=== PATIENT | male | born 1965 ===

== ENCOUNTER 2017-01-03 12:01 | Inpatient (IN) | payer OTHER ==
[2017-01-03] MEDS: Albuterol-Ipratrop 3 mg / 0.5 (3 ml) UD IH SCH ×2 (12:15→12:30)
[2017-01-03] MEDS ORDERED: Albuterol-Ipratrop 3 mg / 0.5 (3 ml) UD ONE (12:27)
--- NOTE | 2017-01-03 12:31 | RAD ---
HISTORY: SOB COMPARISON: Comparison is made to the previous study dated 12/21/2015 TECHNIQUE: Chest PA and lateral FINDINGS: LUNGS: Mild pulmonary vascular congestion P PLEURA: No significant pleural effusion identified. No pneumothorax apparent. CARDIOVASCULAR: Cardiomegaly is again noted OSSEOUS STRUCTURES: No significant abnormalities. VISUALIZED UPPER ABDOMEN: Normal. OTHER FINDINGS: None. IMPRESSION: Cardiomegaly and mild pulmonary vascular congestion. No evidence of significant pleural effusion.
[2017-01-03 12:47] LABS: URINE BILIRUBIN NEGATIVE (NEGATIVE); URINE BLOOD NEGATIVE (NEGATIVE); URINE COLOR Colorless (YELLOW); URINE GLUCOSE (UA) NORMAL (Normal); URINE KETONE NEGATIVE (NEGATIVE); URINE LEUKOCYTE ESTERASE NEG Leu/uL (Negative); URINE PROTEIN NEGATIVE (NEGATIVE); URINE UROBILINOGEN NORMAL mg/dL (0.2-1.0)
[2017-01-03 12:48] LABS: BASO % 0.4 % (0.0-2.0); EOS # 0.1 K/uL (0.0-0.7); EOS % 1.4 % (0.0-4.0); HEMATOCRIT 48.1 % (35.0-51.0); LYMPH # 1.2 K/uL (1.0-4.3); LYMPH % 25.5 % (20.0-40.0); MEAN CELL VOLUME 89.4 fL (80.0-94.0); MEAN CORPUSCULAR HEMOGLOBIN 28.9 pg (27.0-31.0); MEAN CORPUSCULAR HGB CONC 32.3 g/dL (33.0-37.0); MEAN PLATELET VOLUME 8.9 fL (7.2-11.7); MONO # 0.4 K/uL (0.0-0.8); MONO % 8.2 % (0.0-10.0); NRBC % 0.1 % (0.0-2.0); RED CELL DISTRIBUTION WIDTH 13.8 % (11.5-14.5); WHITE BLOOD COUNT 4.5 K/uL (4.8-10.8)
[2017-01-03 12:52] LABS: CHLORIDE 102 mmol/L (98-107); SODIUM 141 mmol/L (132-148)
[2017-01-03 12:53] LABS: POTASSIUM 4.1 mmol/L (3.6-5.2)
[2017-01-03 12:55] LABS: ALB/GLOB RATIO 1.3 (1.0-2.1); ALKALINE PHOSPHATASE 55 U/L (38-126); ALT/SGPT 34 U/L (21-72); AST/SGOT 41 U/L (17-59); BILIRUBIN,TOTAL 1.2 mg/dL (0.2-1.3); BLOOD UREA NITROGEN 10 mg/dL (9-20); CARBON DIOXIDE 20 mmol/L (22-30); GFR AFRICAN-AMERICAN > 60; GLUCOSE,RANDOM 84 mg/dL (75-110); TOTAL PROTEIN 7.9 g/dL (6.3-8.3)
--- NOTE | 2017-01-03 13:05 | C.PDOC ---
History Of Present Illness The patient, a 51 y/o male whose PMHx includes cardiac-related issues and HTN, presents to the ED for evaluation of shortness of breath which began a couple days ago. Patient denies fever, chills, cough, and chest pain. PMD: Dr. Ferro Time Seen by Provider: 01/03/17 12:04 Chief Complaint (Nursing): Shortness Of Breath History Per: Patient History/Exam Limitations: no limitations Onset/Duration Of Symptoms: Days Current Symptoms Are (Timing): Still Present Quality: denies: "Pain" Current Respiratory Medications: See Home Med List Associated Symptoms: denies: Fever, Chills, Chest Pain, Bloody Cough, Productive Cough Additional History Per: Patient Past Medical History Reviewed: Historical Data, Nursing Documentation, Vital Signs Vital Signs: Last Vital Signs Temp 97.9 F 01/03/17 12:03 Pulse 107 H 01/03/17 14:10 Resp 22 01/03/17 14:10 BP 146/104 H 01/03/17 14:10 Pulse Ox 93 L 01/03/17 15:09 - Medical History PMH: CHF, HTN, Hypercholesterolemia, Hyperthyroidism, Pneumonia Denies: Chronic Kidney Disease Surgical History: No Surg Hx Family History: States: Unknown Family Hx - Social History Hx Alcohol Use: No Hx Substance Use: No - Immunization History Hx Tetanus Toxoid Vaccination: No Hx Influenza Vaccination: No Hx Pneumococcal Vaccination: No Review Of Systems Except As Marked, All Systems Reviewed And Found Negative. Constitutional: Negative for: Fever, Chills Cardiovascular: Negative for: Chest Pain Respiratory: Positive for: Shortness of Breath. Negative for: Cough Physical Exam - Physical Exam Appears: Non-toxic, No Acute Distress Skin: Normal Color, Warm, Dry Head: Atraumatic, Normacephalic Eye(s): bilateral: Normal Inspection, EOMI Oral Mucosa: Moist Neck: Supple Chest: Symmetrical, No Deformity, No Tenderness Cardiovascular: Rhythm Regular, No Murmur Respiratory: Rales (crackes at bilateral bases ), No Rhonchi, No Wheezing Gastrointestinal/Abdominal: Soft, No Tenderness, No Guarding, No Rebound Back: Normal Inspection, No Vertebral Tenderness, No Paraspinal Tenderness Extremity: Normal ROM, Capillary Refill (less than 2 seconds), No Swelling Pulses: Left Dorsalis Pedis: Normal, Right Dorsalis Pedis: Normal Neurological/Psych: Oriented x3, Normal Speech, Normal Cognition Gait: Steady ED Course And Treatment - Laboratory Results Result Diagrams: 01/03/17 12:38 01/03/17 12:38 Lab Interpretation: Normal ECG: Interpreted By Me ECG Rhythm: Sinus Tachycardia ECG Interpretation: No Acute Changes Rate From EC O2 Sat by Pulse Oximetry: 93 Pulse Ox Interpretation: Abnormal - Radiology CXR: Interpreted by Me CXR Interpretation: Yes: Cardiomegaly - Other Rad CXR X-Ray: Read By Radiologist Interpretation: Accession No. : [id number]. Patient Name / ID : HUYEN GREEN / [id number]. Exam Date : 01/03/2017 12:15:38 ( Approved ). Study Comment : Sex / Age : M / 51Y. Creator : Carlos Thacker. Dictator : Carlos Thacker. Magistrate Assistant : Rabbit Breeder : Carlos Thacker. Approver2 : Report Date : 01/03/2017 12:29:41. My Comment : . HISTORY: SOB. COMPARISON: Comparison is made to the previous study dated 12/21/2015. TECHNIQUE: Chest PA and lateral. FINDINGS: LUNGS: Mild pulmonary vascular congestion P. PLEURA: No significant pleural effusion identified. No pneumothorax apparent. CARDIOVASCULAR: Cardiomegaly is again noted. OSSEOUS STRUCTURES: No significant abnormalities. VISUALIZED UPPER ABDOMEN: Normal. OTHER FINDINGS: None. IMPRESSION: Cardiomegaly and mild pulmonary vascular congestion. No evidence of significant pleural effusion. Progress Note: labs, EKG, CXR ordered and reviewed. Patient received Albuterol INH. Treated with lasix 40 mg IV. On re-evaluation lungs clear Reassessment Condition: Improved - Physician Consult Information Physician Contacted: Cj Ferro Outcome Of Conversation: Admit to hospitalist service Disposition Discussed With Dr.: Aparna Buckley Doctor Will See Patient In The: Hospital Counseled Patient/Family Regarding: Studies Performed, Diagnosis - Disposition Disposition: HOSPITALIZED Disposition Time: 14:40 Condition: STABLE - POA Present On Arrival: None - Clinical Impression Clinical Impression: Chronic congestive heart failure, Dyspnea, HTN (hypertension) - PA / VEHICLE SALES PROFESSIONAL / Resident Statement MD/DO has reviewed & agrees with the documentation as recorded. - Scribe Statement The provider has reviewed the documentation as recorded by the Scribe (Sandra Dubois) All medical record entries made by the Scribe were at my direction and personally dictated by me. I have reviewed the chart and agree that the record accurately reflects my personal performance of the history, physical exam, medical decision making, and the department course for this patient. I have also personally directed, reviewed, and agree with the discharge instructions and disposition. Decision To Admit - Pt Status Changed To: Hospital Disposition Of: Observation - . Bed Request Type: Telemetry Admitting Physician: Aparna Buckley Patient Diagnosis: Chronic congestive heart failure, Dyspnea, HTN (hypertension)
--- NOTE | 2017-01-03 14:45 | CP.PCM.HP ---
<Cynthia Acevedo - Last Filed: 01/03/17 16:23> History of Present Illness - History of Present Illness History of Present Illness: CC: shortness of breath for 3 days HPI: Patient is a 51year old male PMHx of CHF, HTN, asthma presenting with SOB for 3 days. Patient reported he did not come in earlier as he believed it was improving but it worsened greatly this morning as he was becoming short of breath upon working 10feet to the shower. Patient reported he saw his PMD Dr. Ferro 2 months ago and had not taken his medications for over a week as he didn 't feel like doing so and reported they were making him congested. Patient also states that he had been advised regarding AICD placement for over a year but is still thinking about it. Patient reports this morning he started feeling faint as well as short of breath when walking but denied any acute chest pain. Patient was last seen in in 2016 and was in the ICU for 24hours due to " fluid in lungs." Patient reports having to use 3 pillows to sleep otherwise he feels short of breath. Patient denied chest pain, palpitations, abdominal pain, nausea, vomiting, diarrhea, constipation, urinary complaints, pain in his legs. Patient denied any recent travel and denied any sick contacts. Patient admits to nonproductive cough, unintentional weight gain of 5 pounds in 2 months, and orthopnea. As per medical records, patient had a stress test 1 year ago with an EF of 20%. PMD: Dr. Ferro PMHx: CHF, HTN, asthma Meds: please see list ALL: enalapril, levofloxacin PSurg: denies PHospitalization: 2016 for CHF exacerbation- was in ICU for 1 day Family Hx: denies history of CA, CVA, cancer Social Hx: quit tobacco abuse 2011 used to smoke 1ppd for 15 years. Drinks EtOH socially. Denies drug abuse. Lives with ex 's mom. Works as customer service. ROS: + shortness of breath, + cough, + unintentional weight gain of 5 pounds in 2 months, + orthopnea ED Course: CXR showed cardiomegaly and mild pulmonary vascular congestion. No evidence of significant pleural effusion. EKG showed sinus tach, possible L atrial enlargement, L axis deviation, LVH. Patient had 1 dose of lasix 40mg IVP. Present on Admission - Present on Admission Any Indicators Present on Admission: No Review of Systems - Constitutional Constitutional: As Per HPI, Weight Gain. absent: Chills, Fever - EENT Eyes: As Per HPI. absent: Blurred Vision Ears: As Per HPI. absent: Dizziness Nose/Mouth/Throat: As Per HPI. absent: Nasal Congestion, Sore Throat - Cardiovascular Cardiovascular: As Per HPI, Dyspnea, Dyspnea on Exertion, Orthopnea. absent: Chest Pain, Chest Pain at Rest, Edema, Palpitations, Pedal Edema, Syncope - Respiratory Respiratory: As Per HPI, Dyspnea, Dyspnea on Exertion. absent: Cough, Hemoptysis, Wheezing, Chest Congestion - Gastrointestinal Gastrointestinal: As Per HPI. absent: Abdominal Pain, Constipation, Diarrhea, Nausea, Vomiting - Genitourinary Genitourinary: As Per HPI, Urinary Frequency (increased urinary frequency which patient associates with lasix). absent: Dysuria, Nocturia - Musculoskeletal Musculoskeletal: As Per HPI. absent: Numbness, Tingling - Integumentary Integumentary: As Per HPI. absent: Dry Skin, Rash - Neurological Neurological: As Per HPI. absent: Dizziness, Numbness, Focal Weakness, Syncope - Psychiatric Psychiatric: As Per HPI. absent: Anxiety, Depression - Endocrine Endocrine: As Per HPI, Polyuria. absent: Palpitations, Polydipsia, Polyphagia - Hematologic/Lymphatic Hematologic: As Per HPI. absent: Easy Bleeding, Easy Bruising Past Patient History - Infectious Disease Hx of Infectious Diseases: None - Past Medical History & Family History Past Medical History?: Yes - Past Social History Smoking Status: Former Smoker - CARDIAC Hx Congestive Heart Failure: Yes Hx Hypercholesterolemia: Yes Hx Hypertension: Yes - PULMONARY Hx Pneumonia: Yes - HEENT Other/Comment: wears reading glasses - RENAL Hx Chronic Kidney Disease: No - ENDOCRINE/METABOLIC Hx Hyperthyroidism: Yes - MUSCULOSKELETAL/RHEUMATOLOGICAL Hx Falls: No - PSYCHIATRIC Hx Substance Use: No - SURGICAL HISTORY Hx Surgeries: No - ANESTHESIA Hx Anesthesia: No Hx Anesthesia Reactions: No Meds Allergies/Adverse Reactions: Allergies Allergy/AdvReac Type Severity Reaction Status Date / Time enalapril maleate Allergy Intermediate SHORTNESS Verified 12/20/15 23:43 [From Vasotec] OF BREATH enalaprilat dihydrate Allergy Intermediate SWELLING Verified 12/20/15 23:43 [From Vasotec] levofloxacin Allergy Unknown SHORTNESS Verified 12/20/15 23:43 OF BREATH Physical Exam - Constitutional Appears: Well, Non-toxic, No Acute Distress - Head Exam Head Exam: ATRAUMATIC, NORMAL INSPECTION - Eye Exam Eye Exam: Normal appearance. absent: Conjunctival injection, Scleral icterus - ENT Exam ENT Exam: Mucous Membranes Moist - Neck Exam Neck exam: Positive for: Normal Inspection. Negative for: Tenderness - Respiratory Exam Respiratory Exam: Clear to Auscultation Bilateral, NORMAL BREATHING PATTERN. absent: Rales, Rhonchi, Wheezes - Cardiovascular Exam Cardiovascular Exam: Tachycardia, REGULAR RHYTHM, +S4. absent: Systolic Murmur - GI/Abdominal Exam GI & Abdominal Exam: Normal Bowel Sounds, Soft. absent: Firm, Guarding, Rigid, Tenderness - Extremities Exam Extremities exam: Positive for: normal capillary refill, normal inspection, pedal pulses present. Negative for: pedal edema - Back Exam Back exam: NORMAL INSPECTION. absent: rash noted - Neurological Exam Neurological exam: Alert, Oriented x3 - Psychiatric Exam Psychiatric exam: Normal Affect, Normal Mood - Skin Skin Exam: Dry, Intact, Normal Color, Warm Results - Vital Signs Recent Vital Signs: Last Vital Signs Temp 97.9 F 01/03/17 12:03 Pulse 107 H 01/03/17 14:10 Resp 22 01/03/17 14:10 BP 146/104 H 01/03/17 14:10 Pulse Ox 93 L 01/03/17 14:33 - Labs Result Diagrams: 01/03/17 12:38 01/03/17 12:38 Assessment & Plan - Assessment and Plan (Free Text) Assessment: 51 year old male PMHx CHF, HTN, asthma admitted for shortness of breath Plan: Acute systolic CHF exacerbation Lasix 40mg IVP Q12 Losartan 50mg PO daily Lopressor 25mg PO BID ASA 81mg PO daily Crestor 10mg PO HS f/u Echo f/u JERMAIN and EKG proBNP 2370 D-dimer < 200 CXR 01/03/17: cardiomegaly and mild pulmonary vascular congestion. No evidence of significant pleural effusion f/u AM labs Cardio consult Dr. Staton f/u reccs Hypertension Losartan 50mg PO daily Lopressor 25mg PO BID ASA 81mg PO daily Crestor 10mg PO HS Monitor Asthma Duoneb 3ml INH Q6 PRN PPX Lovenox 40mg SC daily Pepcid 20mg PO BID SCDs Heart Healthy Diet Is and Os Measure Daily Weight Heart healthy diet with fluid restriction 1500cc/hr Plan discussed with Dr. Marcio Acevedo PGY1 <MarcioAparna Bruna - Last Filed: 01/03/17 18:33> Results - Vital Signs Recent Vital Signs: Last Vital Signs Temp 98 F 01/03/17 17:24 Pulse 114 H 01/03/17 17:24 Resp 20 01/03/17 17:24 BP 139/99 H 01/03/17 17:24 Pulse Ox 96 01/03/17 17:24 - Labs Result Diagrams: 01/03/17 12:38 01/03/17 12:38 Labs: Laboratory Results - last 24 hr 01/03/17 16:44 Magnesium 1.8 Attending/Attestation - Attestation I have personally seen and examined this patient.: Yes I have fully participated in the care of the patient.: Yes I have reviewed all pertinent clinical information: Yes Notes (Text): Patient seen, examined, and case discussed with day time resident. Patient seen in [place] [id number] ED with resident at bedside. Patient with history of systolic congestive heart failure reports shortness of breathe and associated chest congestion for 2-3 weeks. Patient reports he thought the medications he was using was making his congestion worse and decide to stop on his own. Patient only takes Aspirin daily. Patient denies history of heart attack, denies family hx of heart attack. Patient is a former smoker. Patient has history of hypertension. Patient recommended for icd by his superintendent service but reports "he will think about it". Noted in review of EMR, patient has had stress test which revealed EF: 20% and he reports he is aware and used to follow-up with his superintendent service every month but stopped. Patient reports he drinks a powerade and 2-3 perez a day. Patient has dyspnea on exertion, associated orthopena, and uses 3 pillows at night. Discussed with ED, Dr. Ferro would like the patient admitted to medicine and would like the on-call cardiology for consult. Discussed admitting orders with day-time resident. Cardiology consulted (Dr. Staton) will see the patient later today. Assessment/Plan: Acute systolic CHF exacerbation admit to telemetry Lasix 40mg IVP Q12 Losartan 50mg PO daily Lopressor 25mg PO BID ASA 81mg PO daily Crestor 10mg PO HS f/u Echo f/u JERMAIN and EKG, Q 6hours X2 proBNP 2370 D-dimer < 200 CXR 01/03/17: cardiomegaly and mild pulmonary vascular congestion. No evidence of significant pleural effusion Cardio consult Dr. Staton f/u reccs DVT ppx Lipid panel, TSH, hgb1ac in AM Hypertension Losartan 50mg PO daily Lopressor 25mg PO BID Monitor monitor vitals heart healthy diet Asthma Duoneb 3ml INH Q6 PRN patient is not symptomatic PPX Lovenox 40mg SC daily Pepcid 20mg PO BID SCDs Heart Healthy Diet Is and Os Measure Daily Weight Heart healthy diet with fluid restriction 1500cc/hr
[2017-01-03 15:22] VITALS: BMI 29.4
[2017-01-03] MEDS ORDERED: Albuterol-Ipratrop 3 mg / 0.5 (3 ml) UD INH PRN (16:27)
[2017-01-03] MEDS ORDERED: Enoxaparin 40 mg Syringe SC SCH (16:30)
[2017-01-03] MEDS ORDERED: Enoxaparin 40 mg Syringe ONE (16:52)
--- NOTE | 2017-01-03 21:23 | CP.PCM.CON ---
History of Present Illness - History of Present Illness History of Present Illness: 51 y/o male admitted with Exac of chf. pt reportedly has an EF of 20%. pt admits to 3 pillow orthopnea, pnd, and sig mercer. no cp, no syncope, no palp. pt had similar episode last year. stress revealed no reversible defects. Pt was considering an AICD. Of note pt felt congested several weeks ago and thus stopped all his heart failure medications. pt ekg reveals ST with ST depressions in v5 and v6. Trop mildly elevated. Review of Systems - Constitutional Constitutional: absent: As Per HPI, Anorexia, Chills, Daytime Sleepiness, Excessive Sweating, Fatigue, Fever, Frequent Falls, Headache, Increased Appetite , Lethargy, Malaise, Night Sweats, Snoring, Sleep Apnea, Weight Gain, Weight Loss, Weakness, Other - EENT Eyes: absent: As Per HPI, Blind Spots, Blurred Vision, Change in Vision, Decreased Night Vision, Diplopia, Discharge, Dry Eye, Exophthalmos, Floaters, Irritation, Itchy Eyes, Loss of Peripheral Vision, Pain, Photophobia, Requires Corrective Lenses, Sees Flashes, Spots in Vision, Tunnel Vision, Other Visual Disturbances, Loss of Vision, Other Ears: absent: As Per HPI, Decreased Hearing, Ear Discharge, Ear Pain, Tinnitus, Abnormal Hearing, Disequilibrium, Dizziness, Other Nose/Mouth/Throat: absent: As Per HPI, Epistaxis, Nasal Congestion, Nasal Discharge, Nasal Obstruction, Nasal Trauma, Nose Pain, Post Nasal Drip, Sinus Pain, Sinus Pressure, Bleeding Gums, Change in Voice, Dental Pain, Dry Mouth, Dysphagia, Halitosis, Hoarsness, Lip Swelling, Mouth Lesions, Mouth Pain, Odynophagia, Sore Throat, Throat Swelling, Tongue Swelling, Facial Pain, Neck Pain, Neck Mass, Other - Cardiovascular Cardiovascular: As Per HPI - Respiratory Respiratory: As Per HPI - Gastrointestinal Gastrointestinal: absent: As Per HPI, Abdominal Pain, Belching, Bloating, Change in Bowel Habits, Change in Stool Character, Coffee Ground Emesis, Constipation, Cramping, Diarrhea, Dyspepsia, Dysphagia, Early Satiety, Excessive Flatus, Fecal Incontinence, Heartburn, Hematemesis, Hematochezia, Loose Stools, Melena, Nausea, Odynophagia, Temesmus, Vomiting, Other - Genitourinary Genitourinary: absent: As Per HPI, Change in Urinary Stream, Difficulty Urinating, Dysuria, Flank Pain, Hematuria, Pyuria, Nocturia, Urinary Incontinence, Urinary Frequency, Urinary Hesitance, Urinary Urgency, Voiding Freq/Small Amts, Freq UTI, Hx Renal/Bladder Calculi, Hx /Renal Surgery, Bladder Distension, Other - Integumentary Integumentary: absent: As Per HPI, Acne, Alopecia, Bleeding Lesions, Change in Hair, Change in Nails, Change in Pigmentation, Changing Lesions, Dry Skin, Erythema, Furuncle, Hirsutism, Lesions, New Lesions, Non-Healing Lesions, Photosensitivity, Pruritus, Rash, Skin Pain, Skin Ulcer, Sores, Striae, Swelling , Unusual Bruising, Wounds, Jaundice, Other - Neurological Neurological: absent: As Per HPI, Abnormal Gait, Abnormal Hearing, Abnormal Movements, Abnormal Speech, Behavioral Changes, Burning Sensations, Confusion, Convulsions, Disequilibrium, Dizziness, Numbness, Focal Weakness, Frequent Falls , Headaches, Lack of Coordination, Loss of Vision, Memory Loss, Paresthesias, Radicular Pain, Restless Legs, Sensory Deficit, Syncope, Tingling, Tremor, Vertigo, Weakness, Other Visual Disturbances, Other - Psychiatric Psychiatric: absent: As Per HPI, Abnormal Sleep Pattern, Anhedonia, Anxiety, Auditory Hallucinations, Behavioral Changes, Change in Appetite, Change in Libido, Confusion, Depression, Difficulty Concentrating, Hallucinations, Homicidal Ideation, Hopelessness, Irritability, Memory Loss, Mood Swings, Panic Attacks, Paranoia, Suicidal Ideation, Visual Hallucinations, Tactile Hallucinations, Other Past Patient History - Infectious Disease Hx of Infectious Diseases: None - Past Medical History & Family History Past Medical History?: Yes - Past Social History Smoking Status: Former Smoker - CARDIAC Hx Congestive Heart Failure: Yes Hx Hypercholesterolemia: Yes Hx Hypertension: Yes - PULMONARY Hx Pneumonia: Yes - HEENT Other/Comment: wears reading glasses - RENAL Hx Chronic Kidney Disease: No - ENDOCRINE/METABOLIC Hx Hyperthyroidism: Yes - MUSCULOSKELETAL/RHEUMATOLOGICAL Hx Falls: No - PSYCHIATRIC Hx Substance Use: No - SURGICAL HISTORY Hx Surgeries: No - ANESTHESIA Hx Anesthesia: No Hx Anesthesia Reactions: No Meds Allergies/Adverse Reactions: Allergies Allergy/AdvReac Type Severity Reaction Status Date / Time enalapril maleate Allergy Intermediate SHORTNESS Verified 12/20/15 23:43 [From Vasotec] OF BREATH enalaprilat dihydrate Allergy Intermediate SWELLING Verified 12/20/15 23:43 [From Vasotec] levofloxacin Allergy Unknown SHORTNESS Verified 12/20/15 23:43 OF BREATH - Medications Medications: Current Medications Albuterol/Ipratropium (Duoneb 3 Mg/0.5 Mg (3 Ml) Ud) 3 ml INH RQ6 PRN PRN Reason: Shortness of Breath Aspirin (Aspirin Chewable) 81 mg PO DAILY [facility] Last Admin: 01/03/17 16:53 Dose: 81 mg Aspirin (Aspirin) 325 mg PO DAILY [facility] Enoxaparin Sodium (Lovenox) 90 mg SC Q12H [facility] Enoxaparin Sodium (Lovenox) 40 mg SC ONCE ONE Stop: 01/03/17 21:31 Famotidine (Pepcid) 20 mg PO BID [facility] Last Admin: 01/03/17 18:41 Dose: 20 mg Furosemide (Lasix) 40 mg IVP Q12 [facility] Losartan Potassium (Cozaar) 50 mg PO DAILY [facility] Last Admin: 01/03/17 16:53 Dose: 50 mg Metoprolol Succinate (Toprol Xl) 50 mg PO Q12 [facility] Rosuvastatin Calcium (Crestor) 10 mg PO HS [facility] Physical Exam - Constitutional Appears: Non-toxic - Head Exam Head Exam: ATRAUMATIC, NORMAL INSPECTION, NORMOCEPHALIC - Eye Exam Eye Exam: EOMI, Normal appearance, PERRL Pupil Exam: NORMAL ACCOMODATION, PERRL - ENT Exam ENT Exam: Mucous Membranes Moist, Normal Exam - Neck Exam Additional comments: mild hjr - Respiratory Exam Respiratory Exam: Rales Additional comments: mild bibasilar rales - Cardiovascular Exam Cardiovascular Exam: Tachycardia, REGULAR RHYTHM, Systolic Murmur - GI/Abdominal Exam GI & Abdominal Exam: Normal Bowel Sounds, Soft - Extremities Exam Additional comments: pedal edema. pulses 2+ - Back Exam Back exam: NORMAL INSPECTION - Neurological Exam Neurological exam: Alert, CN II-XII Intact, Normal Gait, Oriented x3, Reflexes Normal - Psychiatric Exam Psychiatric exam: Normal Affect, Normal Mood - Skin Skin Exam: Dry, Intact, Normal Color, Warm Results - Vital Signs Recent Vital Signs: Last Vital Signs Temp 98 F 01/03/17 17:24 Pulse 114 H 01/03/17 18:00 Resp 20 01/03/17 17:24 BP 139/99 H 01/03/17 18:41 Pulse Ox 96 01/03/17 17:24 - Labs Result Diagrams: 01/04/17 06:15 01/04/17 06:15 Labs: Laboratory Results - last 24 hr 01/03/17 01/03/17 16:44 20:02 Magnesium 1.8 Total Creatine Kinase 204 H CK-MB (Mass) 2.88 Troponin I, Quant 0.0820 - EKG Data EKG Interpreted by: Myself EKG shows normal: Sinus rhythm Rate: Tachycardia - EKG Data Interpretation: Acute Ischemia Assessment & Plan (1) Dyspnea Status: Acute (2) Hyperlipidemia Status: Acute (3) HTN (hypertension) Status: Chronic (4) Acute on chronic combined systolic and diastolic congestive heart failure Status: Acute (5) EKG abnormality Status: Acute Comment: SUSPICIOUS FOR ISCHEMIA. (6) Troponin I above reference range Status: Acute - Assessment and Plan (Free Text) Plan: GIVEN EKG CHANGES WOULD CHANGE BB TO TOPROL XL 50 Q12 FULL ANTICOAG TREND TROP CONTINUE TELE MONITOR LYTES REPEAT EKG ONCE RATE CONTROLLED. WILL CONSIDER CARDIAC CATH. 75 MIN TOTAL
[2017-01-03] MEDS ORDERED: Enoxaparin 40 mg Syringe SC ONE ×2 (21:30→23:15)
[2017-01-03] MEDS: Metoprolol Succinate 50 mg XL Tab PO SCH (23:18)
[2017-01-04 06:25] LABS: BASO % 0.4 % (0.0-2.0); EOS # 0.1 K/uL (0.0-0.7); EOS % 2.3 % (0.0-4.0); HEMATOCRIT 47.5 % (35.0-51.0); LYMPH # 1.4 K/uL (1.0-4.3); LYMPH % 34.4 % (20.0-40.0); MEAN CELL VOLUME 89.2 fL (80.0-94.0); MEAN CORPUSCULAR HEMOGLOBIN 29.2 pg (27.0-31.0); MEAN CORPUSCULAR HGB CONC 32.7 g/dL (33.0-37.0); MEAN PLATELET VOLUME 8.7 fL (7.2-11.7); MONO # 0.5 K/uL (0.0-0.8); MONO % 12.5 % (0.0-10.0); NRBC % 0.1 % (0.0-2.0); RED CELL DISTRIBUTION WIDTH 13.4 % (11.5-14.5); WHITE BLOOD COUNT 4.1 K/uL (4.8-10.8)
[2017-01-04 07:37] LABS: CHLORIDE 100 mmol/L (98-107); POTASSIUM 3.3 mmol/L (3.6-5.2); SODIUM 140 mmol/L (132-148)
[2017-01-04 07:39] LABS: ALB/GLOB RATIO 1.3 (1.0-2.1); ALKALINE PHOSPHATASE 60 U/L (38-126); ALT/SGPT 31 U/L (21-72); AST/SGOT 43 U/L (17-59); BILIRUBIN,TOTAL 1.2 mg/dL (0.2-1.3); BLOOD UREA NITROGEN 18 mg/dL (9-20); CARBON DIOXIDE 25 mmol/L (22-30); CHOLESTEROL 242 mg/dL (0-199); GFR AFRICAN-AMERICAN > 60; GLUCOSE,RANDOM 94 mg/dL (75-110); TOTAL PROTEIN 7.2 g/dL (6.3-8.3)
[2017-01-04 07:40] LABS: CALCIUM 8.7 mg/dl (8.6-10.4); PHOSPHOROUS 4.8 mg/dL (2.5-4.5)
[2017-01-04 07:53] LABS: THYROID STIMULATING HORMONE 3.58 mIU/L (0.46-4.68)
[2017-01-04] MEDS: Metoprolol Succinate 50 mg XL Tab PO SCH ×2 (09:41→21:00)
[2017-01-04] MEDS ORDERED: Potassium Chloride 20 mEq ER Tab PO ONE (10:46)
[2017-01-04] MEDS: Enoxaparin 100 mg Syringe SC SCH ×2 (10:58→21:00)
--- NOTE | 2017-01-04 11:28 | CP.PCM.PN ---
<Noe Noel - Last Filed: 01/04/17 20:39> Subjective - Date & Time of Evaluation Date of Evaluation: 01/04/17 Time of Evaluation: 10:00 - Subjective Subjective: Dr. Miranda Service: Patient seen and discussd with Dr. Miranda primary medical attending. Patient reports coming to the hospital due to shortness of breath and chest pain. But he says his chest pain has resolved and his breathing has improved. He denies changes in vision, hearing, palliations, cough, nausea, vomiting, dsysuria, weakness, or joint pain. Objective - Vital Signs/Intake and Output Vital Signs (last 24 hours): Temp Pulse Resp BP Pulse Ox 97.6 F 72 20 115/85 96 01/04/17 08:08 01/04/17 08:08 01/04/17 08:08 01/04/17 10:56 01/04/17 08:08 Intake and Output: 01/04/17 01/04/17 06:59 18:59 Intake Total 500 Output Total 1300 Balance -800 - Medications Medications: Current Medications Albuterol/Ipratropium (Duoneb 3 Mg/0.5 Mg (3 Ml) Ud) 3 ml INH RQ6 PRN PRN Reason: Shortness of Breath Aspirin (Aspirin) 325 mg PO DAILY [facility] Last Admin: 01/04/17 09:41 Dose: 325 mg Enoxaparin Sodium (Lovenox) 90 mg SC Q12H [facility] Last Admin: 01/04/17 10:58 Dose: 90 mg Famotidine (Pepcid) 20 mg PO BID [facility] Last Admin: 01/04/17 09:41 Dose: 20 mg Furosemide (Lasix) 20 mg IVP DAILY [facility] Last Admin: 01/04/17 10:56 Dose: 20 mg Losartan Potassium (Cozaar) 50 mg PO DAILY [facility] Last Admin: 01/04/17 09:41 Dose: 50 mg Metoprolol Succinate (Toprol Xl) 50 mg PO Q12 [facility] Last Admin: 01/04/17 09:41 Dose: 50 mg Rosuvastatin Calcium (Crestor) 10 mg PO HS [facility] Last Admin: 01/03/17 23:17 Dose: 10 mg - Labs Labs: 01/04/17 06:15 01/04/17 06:15 - Constitutional Appears: Non-toxic, No Acute Distress - Head Exam Head Exam: ATRAUMATIC, NORMAL INSPECTION, NORMOCEPHALIC - Eye Exam Eye Exam: Normal appearance - ENT Exam ENT Exam: Normal Exam - Respiratory Exam Respiratory Exam: Clear to Ausculation Bilateral. absent: Rhonchi, Wheezes - Cardiovascular Exam Cardiovascular Exam: REGULAR RHYTHM, RRR, +S1, +S2, Murmur. absent: Gallop, Rubs - GI/Abdominal Exam GI & Abdominal Exam: Soft, Normal Bowel Sounds. absent: Distended, Firm, Tenderness - Extremities Exam Extremities Exam: Normal Inspection. absent: Pedal Edema - Back Exam Back Exam: NORMAL INSPECTION - Psychiatric Exam Psychiatric exam: Normal Affect, Normal Mood - Skin Skin Exam: Normal Color, Warm Assessment and Plan - Assessment and Plan (Free Text) Assessment: Acute systolic CHF exacerbation 01/04: Dr. Staton consulted, he is now on full anticoagulation, have keptd him NPO past midnight in case he goes for cardiac cath tomorrow, Jodee are negative. continue current medication. Previous note: Lasix 40mg IVP Q12 Losartan 50mg PO daily Lopressor 25mg PO BID ASA 81mg PO daily Crestor 10mg PO HS f/u Echo f/u JODEE and EKG proBNP 2370 D-dimer < 200 CXR 01/03/17: cardiomegaly and mild pulmonary vascular congestion. No evidence of significant pleural effusion f/u AM labs Cardio consult Dr. Staton f/u reccs Hypertension Losartan 50mg PO daily Lopressor 25mg PO BID ASA 81mg PO daily Crestor 10mg PO HS Monitor Asthma Duoneb 3ml INH Q6 PRN PPX Lovenox 40mg SC daily Pepcid 20mg PO BID SCDs Heart Healthy Diet Is and Os Measure Daily Weight Heart healthy diet with fluid restriction 1500cc/hr <Jermaine Miranda - Last Filed: 01/08/17 14:47> Objective - Vital Signs/Intake and Output Vital Signs (last 24 hours): Temp Pulse Resp BP Pulse Ox 98 F 79 20 100/62 99 01/06/17 15:53 01/06/17 15:53 01/06/17 15:53 01/06/17 15:53 01/06/17 15:53 - Labs Labs: PT 11.9 SECONDS (9.7-12.2) 01/05/17 06:46 INR 1.1 01/05/17 06:46 APTT 34 SECONDS (21-34) 01/05/17 06:46 Attending/Attestation - Attestation I have personally seen and examined this patient.: Yes I have fully participated in the care of the patient.: Yes I have reviewed all pertinent clinical information, including history, physical exam and plan: Yes Notes (Text): 01/08/17 14:46 Patient was seen and examined at bedside with the resident No new complaints Plan for cardiac catheterization as per cardiology Continue current medical management This is late computer entry
--- NOTE | 2017-01-04 14:43 | CP.PCM.PN ---
Subjective - Date & Time of Evaluation Date of Evaluation: 01/04/17 Time of Evaluation: 14:39 - Subjective Subjective: PT FEELS BETTER. STATES THAT HE MOST LIKELY HAS TORSTEN. HE HAS NOT BEEN TESTED FOR IT. HE STATES HE [place] [facility] BUT IS UNAWARE OF RESULTS. Objective - Vital Signs/Intake and Output Vital Signs (last 24 hours): Temp Pulse Resp BP Pulse Ox 97.6 F 72 20 115/85 96 01/04/17 08:08 01/04/17 08:08 01/04/17 08:08 01/04/17 10:56 01/04/17 08:08 Intake and Output: 01/04/17 01/04/17 06:59 18:59 Intake Total 500 600 Output Total 1300 Balance -800 600 - Medications Medications: Current Medications Albuterol/Ipratropium (Duoneb 3 Mg/0.5 Mg (3 Ml) Ud) 3 ml INH RQ6 PRN PRN Reason: Shortness of Breath Aspirin (Aspirin) 325 mg PO DAILY [facility] Last Admin: 01/04/17 09:41 Dose: 325 mg Enoxaparin Sodium (Lovenox) 90 mg SC Q12H [facility] Last Admin: 01/04/17 10:58 Dose: 90 mg Famotidine (Pepcid) 20 mg PO BID [facility] Last Admin: 01/04/17 09:41 Dose: 20 mg Furosemide (Lasix) 20 mg IVP DAILY [facility] Last Admin: 01/04/17 10:56 Dose: 20 mg Losartan Potassium (Cozaar) 50 mg PO DAILY [facility] Last Admin: 01/04/17 09:41 Dose: 50 mg Metoprolol Succinate (Toprol Xl) 50 mg PO Q12 [facility] Last Admin: 01/04/17 09:41 Dose: 50 mg Rosuvastatin Calcium (Crestor) 10 mg PO HS [facility] Last Admin: 01/03/17 23:17 Dose: 10 mg - Labs Labs: 01/04/17 06:15 01/04/17 06:15 - Constitutional Appears: Well - Head Exam Head Exam: ATRAUMATIC, NORMAL INSPECTION, NORMOCEPHALIC - Eye Exam Eye Exam: EOMI, Normal appearance, PERRL Pupil Exam: NORMAL ACCOMODATION, PERRL - ENT Exam ENT Exam: Mucous Membranes Moist, Normal Exam - Neck Exam Neck Exam: Full ROM, Normal Inspection. absent: Lymphadenopathy - Respiratory Exam Respiratory Exam: Rales, NORMAL BREATHING PATTERN - Cardiovascular Exam Cardiovascular Exam: REGULAR RHYTHM, +S1, +S2, Murmur - GI/Abdominal Exam GI & Abdominal Exam: Soft, Normal Bowel Sounds. absent: Tenderness - Extremities Exam Extremities Exam: Full ROM, Normal Capillary Refill, Normal Inspection. absent : Joint Swelling, Pedal Edema - Back Exam Back Exam: NORMAL INSPECTION - Neurological Exam Neurological Exam: Alert, Awake, CN II-XII Intact, Normal Gait, Oriented x3 - Psychiatric Exam Psychiatric exam: Normal Affect, Normal Mood - Skin Skin Exam: Dry, Intact, Normal Color, Warm Assessment and Plan (1) Dyspnea Status: Acute (2) Hyperlipidemia Status: Acute (3) HTN (hypertension) Status: Chronic (4) Acute on chronic combined systolic and diastolic congestive heart failure Status: Acute (5) EKG abnormality Status: Acute (6) Troponin I above reference range Status: Acute - Assessment and Plan (Free Text) Plan: WILL ATTEMPT TO LOCATE PTS RECORDS [place] [facility] TROP NOW RECHECK EKG NOW I AM CONSIDERING CARDIAC CATH GIVEN ECG CHANGES AND CHF WOULD EVAL FOR TORSTEN OUTPT REINFORCE MED COMPLIANCE. MONITOR LABS. CONTINUE FULL ANTICOAG AT THIS TIME. 45 MIN TOTAL CARE TIME
[2017-01-05 07:05] LABS: INR 1.1
[2017-01-05 07:11] LABS: BASO % 0.3 % (0.0-2.0); EOS # 0.2 K/uL (0.0-0.7); EOS % 2.8 % (0.0-4.0); HEMATOCRIT 50.2 % (35.0-51.0); LYMPH # 2.6 K/uL (1.0-4.3); LYMPH % 48.1 % (20.0-40.0); MEAN CELL VOLUME 90.2 fL (80.0-94.0); MEAN CORPUSCULAR HEMOGLOBIN 28.9 pg (27.0-31.0); MEAN PLATELET VOLUME 9.4 fL (7.2-11.7); MONO # 0.6 K/uL (0.0-0.8); MONO % 11.4 % (0.0-10.0); NRBC % 0.1 % (0.0-2.0); RED CELL DISTRIBUTION WIDTH 13.6 % (11.5-14.5); WHITE BLOOD COUNT 5.4 K/uL (4.8-10.8)
[2017-01-05 07:36] LABS: CHLORIDE 102 mmol/L (98-107); POTASSIUM 4.3 mmol/L (3.6-5.2); SODIUM 142 mmol/L (132-148)
[2017-01-05 07:38] LABS: GFR AFRICAN-AMERICAN > 60
[2017-01-05 07:39] LABS: BLOOD UREA NITROGEN 21 mg/dL (9-20); CALCIUM 9.1 mg/dl (8.6-10.4); CARBON DIOXIDE 25 mmol/L (22-30); GLUCOSE,RANDOM 92 mg/dL (75-110); MAGNESIUM 2.1 mg/dL (1.6-2.3)
--- NOTE | 2017-01-05 09:20 | CP.PCM.PN ---
<Vinh Salazar - Last Filed: 01/05/17 20:59> Subjective - Date & Time of Evaluation Date of Evaluation: 01/05/17 Time of Evaluation: 07:45 - Subjective Subjective: PGY1 Medicine Note - Dr. Shaikh Patient seen and examined, no overnight events per nursing. Patient reports coming to the hospital due to shortness of breath and chest pain, after stopping his home medications for nearly 2 weeks. When asked why, he admits that the diuretic causes him to urinate frequently, and this becomes cumbersome. He states he wanted to see how he would do without the medications. Currently denies chest pain and SOB. Denies changes in vision, hearing, palliations, cough, nausea, vomiting, dsysuria, weakness, or joint pain. Objective - Vital Signs/Intake and Output Vital Signs (last 24 hours): Temp Pulse Resp BP Pulse Ox 98.2 F 88 18 112/79 96 01/05/17 07:10 01/05/17 08:00 01/05/17 07:10 01/05/17 07:10 01/05/17 07:10 Intake and Output: 01/05/17 01/05/17 06:59 18:59 Intake Total 500 Output Total 400 Balance 100 - Medications Medications: Current Medications Albuterol/Ipratropium (Duoneb 3 Mg/0.5 Mg (3 Ml) Ud) 3 ml INH RQ6 PRN PRN Reason: Shortness of Breath Aspirin (Aspirin) 325 mg PO DAILY [facility] Last Admin: 01/04/17 09:41 Dose: 325 mg Enoxaparin Sodium (Lovenox) 90 mg SC Q12H [facility] Last Admin: 01/04/17 21:00 Dose: 90 mg Famotidine (Pepcid) 20 mg PO BID [facility] Last Admin: 01/04/17 18:25 Dose: 20 mg Furosemide (Lasix) 20 mg IVP DAILY [facility] Last Admin: 01/04/17 10:56 Dose: 20 mg Losartan Potassium (Cozaar) 50 mg PO DAILY [facility] Last Admin: 01/04/17 09:41 Dose: 50 mg Metoprolol Succinate (Toprol Xl) 50 mg PO Q12 [facility] Last Admin: 01/04/17 21:00 Dose: 50 mg Rosuvastatin Calcium (Crestor) 10 mg PO HS [facility] Last Admin: 01/04/17 21:00 Dose: 10 mg - Labs Labs: 01/05/17 06:46 01/05/17 06:46 PT 11.9 SECONDS (9.7-12.2) 01/05/17 06:46 INR 1.1 01/05/17 06:46 APTT 34 SECONDS (21-34) 01/05/17 06:46 - Additional Findings Additional findings: - Constitutional Appears: Non-toxic, No Acute Distress - Head Exam Head Exam: ATRAUMATIC, NORMAL INSPECTION, NORMOCEPHALIC - Eye Exam Eye Exam: Normal appearance - ENT Exam ENT Exam: Normal Exam - Respiratory Exam Respiratory Exam: Clear to Ausculation Bilateral. absent: Rhonchi, Wheezes - Cardiovascular Exam Cardiovascular Exam: REGULAR RHYTHM, RRR, +S1, +S2, Murmur. absent: Gallop, Rubs - GI/Abdominal Exam GI & Abdominal Exam: Soft, Normal Bowel Sounds. absent: Distended, Firm, Tenderness - Extremities Exam Extremities Exam: Normal Inspection. absent: Pedal Edema - Back Exam Back Exam: NORMAL INSPECTION - Psychiatric Exam Psychiatric exam: Normal Affect, Normal Mood - Skin Skin Exam: Normal Color, Warm Assessment and Plan - Assessment and Plan (Free Text) Assessment: Acute systolic CHF exacerbation -Pt stopped home medications for nearly 2 weeks because the diuretic causes him to urinate frequently, and this becomes cumbersome for him ("wanted to see how I would do without the medications") -f/u Echo (pending read) -f/u EKG 4 -Troponin 3-4 Positive (Downtrending). Troponin's 1-2 Negative. -EKG 3 - left ventricular hypertrophy; possible inferolateral ischemia. -CKMB negative x2 -Cardio consult, Dr. Lopez, f/u recs -Pt previously worn a life vest before for about one year -Dr. Ferro is okay with team treating his patient - implant ICD if necessary . -Cardio consult Dr. Staton f/u recs -pt without complaints of cp or mercer. positive orthopnea. -repeat echo reveals dcm and ef of 12%. [place] [facility] [place] no cad on cath in 2012. stress test last year no ischemia decrease lovenox to 40 daily increase diuretics to 1mg bumex bid x 2 days then decrease to current lasix dosing. Previous note: Lasix 40mg IVP Q12 Losartan 50mg PO daily Lopressor 25mg PO BID ASA 81mg PO daily Crestor 10mg PO HS f/u JERMAIN and EKG proBNP 2370 D-dimer < 200 CXR 01/03/17: cardiomegaly and mild pulmonary vascular congestion. No evidence of significant pleural effusion Hypertension 01/05: BP WNL, monitor Losartan 50mg PO daily Lopressor 25mg PO BID ASA 81mg PO daily Crestor 10mg PO HS Asthma Duoneb 3ml INH Q6 PRN PPX Lovenox 40mg SC daily Pepcid 20mg PO BID [facility] Heart Healthy Diet Is and Os Measure Daily Weight Heart healthy diet with fluid restriction 1500cc/hr <Earnest Shaikh - Last Filed: 02/07/17 18:09> Objective - Vital Signs/Intake and Output Vital Signs (last 24 hours): Temp Pulse Resp BP Pulse Ox 98 F 79 20 100/62 99 01/06/17 15:53 01/06/17 15:53 01/06/17 15:53 01/06/17 15:53 01/06/17 15:53 - Labs Labs: PT 11.9 SECONDS (9.7-12.2) 01/05/17 06:46 INR 1.1 01/05/17 06:46 APTT 34 SECONDS (21-34) 01/05/17 06:46 Attending/Attestation - Attestation I have personally seen and examined this patient.: Yes I have fully participated in the care of the patient.: Yes I have reviewed all pertinent clinical information, including history, physical exam and plan: Yes Notes (Text): Patient seen and examined with the resident. Agree with the resident's evaluation, assessment and plan. Acute systolic CHF exacerbation -Pt stopped home medications for nearly 2 weeks because the diuretic causes him to urinate frequently, and this becomes cumbersome for him ("wanted to see how I would do without the medications")
[2017-01-05 11:29] VITALS: RESP 20
[2017-01-05] MEDS: Metoprolol Succinate 50 mg XL Tab PO SCH ×2 (11:30→21:43)
[2017-01-05] MEDS: Enoxaparin 100 mg Syringe SC SCH (11:32)
--- NOTE | 2017-01-05 11:58 | CP.PCM.CON ---
<Nic Nicole - Last Filed: 01/05/17 14:00> History of Present Illness - History of Present Illness History of Present Illness: Cardiology Consult Note- Dr. Lopez Patient was seen and examined at bedside. Patient reports that he has a hx of CHF and was told that he may need an ICD. He says he has previously worn a life vest before for about one year. He currently has no acute complaints, his breathing is markedly improved from he first came to the hospital. PMHx: CHF, HTN, asthma ALL: enalapril, levofloxacin, iodine/contrast PSurg: denies PHospitalization: 2016 for CHF exacerbation- was in ICU for 1 day Family Hx: denies history of ID, CVA, cancer Social Hx: quit tobacco abuse 2011 used to smoke 1ppd for 15 years. Drinks EtOH socially. Denies drug abus Review of Systems - Constitutional Constitutional: absent: Anorexia, Chills, Fever, Weight Loss, Weakness - Cardiovascular Cardiovascular: absent: Chest Pain, Irregular Heart Rhythm, Leg Edema, Palpitations, Pedal Edema - Respiratory Respiratory: absent: Cough, Hemoptysis, Dyspnea on Exertion, Wheezing - Gastrointestinal Gastrointestinal: absent: Abdominal Pain, Constipation, Diarrhea, Nausea, Vomiting - Genitourinary Genitourinary: absent: Difficulty Urinating, Dysuria, Hematuria - Musculoskeletal Musculoskeletal: absent: Atrophy, Back Pain, Myalgias, Numbness, Tingling - Integumentary Integumentary: absent: Skin Ulcer, Sores, Striae, Wounds - Neurological Neurological: absent: Abnormal Movements, Tingling, Tremor, Weakness - Psychiatric Psychiatric: absent: Anhedonia, Anxiety, Panic Attacks, Suicidal Ideation - Endocrine Endocrine: absent: Fatigue, Palpitations Past Patient History - Infectious Disease Hx of Infectious Diseases: None - Past Medical History & Family History Past Medical History?: Yes - Past Social History Smoking Status: Former Smoker Chewing Tobacco Use: No Cigar Use: No Alcohol: Social Drugs: Denies - CARDIAC Hx Congestive Heart Failure: Yes Hx Hypercholesterolemia: Yes Hx Hypertension: Yes - PULMONARY Hx Pneumonia: Yes - HEENT Other/Comment: wears reading glasses - RENAL Hx Chronic Kidney Disease: No - ENDOCRINE/METABOLIC Hx Hyperthyroidism: Yes - MUSCULOSKELETAL/RHEUMATOLOGICAL Hx Falls: No - PSYCHIATRIC Hx Substance Use: No - SURGICAL HISTORY Hx Surgeries: No - ANESTHESIA Hx Anesthesia: No Hx Anesthesia Reactions: No Meds Allergies/Adverse Reactions: Allergies Allergy/AdvReac Type Severity Reaction Status Date / Time enalapril maleate Allergy Intermediate SHORTNESS Verified 12/20/15 23:43 [From Vasotec] OF BREATH enalaprilat dihydrate Allergy Intermediate SWELLING Verified 12/20/15 23:43 [From Vasotec] levofloxacin Allergy Unknown SHORTNESS Verified 12/20/15 23:43 OF BREATH - Medications Medications: Current Medications Albuterol/Ipratropium (Duoneb 3 Mg/0.5 Mg (3 Ml) Ud) 3 ml INH RQ6 PRN PRN Reason: Shortness of Breath Aspirin (Aspirin) 325 mg PO DAILY [facility] Last Admin: 01/05/17 11:30 Dose: 325 mg Enoxaparin Sodium (Lovenox) 90 mg SC Q12H [facility] Last Admin: 01/05/17 11:32 Dose: 90 mg Famotidine (Pepcid) 20 mg PO BID [facility] Last Admin: 01/05/17 11:30 Dose: 20 mg Furosemide (Lasix) 20 mg IVP DAILY [facility] Last Admin: 01/05/17 11:32 Dose: 20 mg Losartan Potassium (Cozaar) 50 mg PO DAILY [facility] Last Admin: 01/05/17 11:29 Dose: 50 mg Metoprolol Succinate (Toprol Xl) 50 mg PO Q12 [facility] Last Admin: 01/05/17 11:30 Dose: 50 mg Rosuvastatin Calcium (Crestor) 10 mg PO HS [facility] Last Admin: 01/04/17 21:00 Dose: 10 mg Physical Exam - Constitutional Appears: Non-toxic, No Acute Distress - Head Exam Head Exam: ATRAUMATIC, NORMAL INSPECTION, NORMOCEPHALIC - Eye Exam Pupil Exam: NORMAL ACCOMODATION, PERRL - ENT Exam ENT Exam: Mucous Membranes Moist - Respiratory Exam Respiratory Exam: Clear to Auscultation Bilateral, NORMAL BREATHING PATTERN. absent: Prolonged Expiratory Phase, Rales, Rhonchi, Wheezes - Cardiovascular Exam Cardiovascular Exam: REGULAR RHYTHM, +S1, +S2 - GI/Abdominal Exam GI & Abdominal Exam: Normal Bowel Sounds, Soft. absent: Distended, Firm, Tenderness - Neurological Exam Neurological exam: Alert, CN II-XII Intact, Oriented x3 - Psychiatric Exam Psychiatric exam: Normal Affect, Normal Mood - Skin Skin Exam: Dry, Intact, Normal Color, Warm Results - Vital Signs Recent Vital Signs: Last Vital Signs Temp 98.6 F 01/05/17 11:28 Pulse 86 01/05/17 11:28 Resp 20 01/05/17 11:28 BP 126/89 01/05/17 11:32 Pulse Ox 98 01/05/17 11:28 - Labs Result Diagrams: 01/05/17 06:46 01/05/17 06:46 Labs: Laboratory Results - last 24 hr 01/04/17 01/05/17 06:15 06:46 WBC 5.4 RBC 5.57 Hgb 16.1 Hct 50.2 MCV 90.2 MCH 28.9 MCHC 32.0 L RDW 13.6 Plt Count 199 MPV 9.4 Neut % (Auto) 37.4 L Lymph % (Auto) 48.1 H [place] % (Auto) 11.4 H Eos % (Auto) 2.8 Baso % (Auto) 0.3 Neut # 2.0 Lymph # 2.6 [place] # 0.6 Eos # 0.2 Baso # 0.0 PT 11.9 INR 1.1 APTT 34 Sodium 142 Potassium 4.3 Chloride 102 Carbon Dioxide 25 Anion Gap 19 BUN 21 H Creatinine 1.3 Est GFR ( Amer) > 60 Est GFR (Non-Af Amer) 59 Random Glucose 92 Hemoglobin A1c 5.5 Calcium 9.1 Magnesium 2.1 Troponin I 0.0770 0.5040 H* Assessment & Plan - Assessment and Plan (Free Text) Assessment: Acute on Chronic CHF Non ischemic dilated cardiomyopathy Continue meds: Lasix 40mg IVP Q12 Losartan 50mg PO daily ASA 81mg PO daily Crestor 10mg PO HS Metoprolol Succinate 50mg Q12h Continue full anticoagulation Will attempt to obtain records from [facility] [place] in regards to echos/ caths previously done. First 3 ROMIs negative JERMAIN this AM positive at 0.[address] Staton, cardiac cath records from 2012 indicate that his coronaries were patent and functional, so no cath will be needed at this time. Called Dr. Ferro, he is okay with us proceeding with treating his patient, implant ICD if necessary. Will discuss case with Dr. Lopez <Tere Lopez - Last Filed: 01/07/17 09:33> Results - Vital Signs Recent Vital Signs: Last Vital Signs Temp 98 F 01/06/17 15:53 Pulse 79 01/06/17 15:53 Resp 20 01/06/17 15:53 BP 100/62 01/06/17 15:53 Pulse Ox 99 01/06/17 15:53 - Labs Result Diagrams: 01/05/17 06:46 01/05/17 06:46 Attending/Attestation - Attestation I have personally seen and examined this patient.: Yes I have fully participated in the care of the patient.: Yes I have reviewed all pertinent clinical information: Yes Notes (Text): 01/07/17 09:29 discussed at length severity of CMP pt has a need to work and agrees to a vest and ICD on of next week. I will make arrangements for ICD all in agreement
--- NOTE | 2017-01-05 15:34 | CP.PCM.PN ---
Subjective - Date & Time of Evaluation Date of Evaluation: 01/05/17 Time of Evaluation: 14:00 - Subjective Subjective: pt without complaints of cp or mercer. positive orthopnea. repeat echo reveals dcm and ef of 12%. Objective - Vital Signs/Intake and Output Vital Signs (last 24 hours): Temp Pulse Resp BP Pulse Ox 98.6 F 86 20 126/89 98 01/05/17 11:28 01/05/17 11:28 01/05/17 11:28 01/05/17 11:32 01/05/17 11:28 - Medications Medications: Current Medications Aspirin (Aspirin) 325 mg PO DAILY [facility] Last Admin: 01/05/17 11:30 Dose: 325 mg Bumetanide (Bumex) 1 mg IVP Q12 [facility] Stop: 01/06/17 22:01 Enoxaparin Sodium (Lovenox) 40 mg SC DAILY [facility] Famotidine (Pepcid) 20 mg PO BID [facility] Last Admin: 01/05/17 11:30 Dose: 20 mg Losartan Potassium (Cozaar) 50 mg PO DAILY [facility] Last Admin: 01/05/17 11:29 Dose: 50 mg Metoprolol Succinate (Toprol Xl) 50 mg PO Q12 [facility] Last Admin: 01/05/17 11:30 Dose: 50 mg Rosuvastatin Calcium (Crestor) 10 mg PO HS [facility] Last Admin: 01/04/17 21:00 Dose: 10 mg - Labs Labs: PT 11.9 SECONDS (9.7-12.2) 01/05/17 06:46 INR 1.1 01/05/17 06:46 APTT 34 SECONDS (21-34) 01/05/17 06:46 - Constitutional Appears: Well - Head Exam Head Exam: ATRAUMATIC, NORMAL INSPECTION, NORMOCEPHALIC - Eye Exam Eye Exam: EOMI, Normal appearance, PERRL Pupil Exam: NORMAL ACCOMODATION, PERRL - ENT Exam ENT Exam: Mucous Membranes Moist, Normal Exam - Neck Exam Neck Exam: Full ROM, Normal Inspection. absent: Lymphadenopathy - Respiratory Exam Respiratory Exam: Rales, NORMAL BREATHING PATTERN - Cardiovascular Exam Cardiovascular Exam: REGULAR RHYTHM, +S1, +S2, Murmur - GI/Abdominal Exam GI & Abdominal Exam: Soft, Normal Bowel Sounds. absent: Tenderness - Extremities Exam Extremities Exam: Full ROM, Normal Capillary Refill, Normal Inspection. absent : Joint Swelling, Pedal Edema - Back Exam Back Exam: NORMAL INSPECTION - Neurological Exam Neurological Exam: Alert, Awake, CN II-XII Intact, Normal Gait, Oriented x3 - Psychiatric Exam Psychiatric exam: Normal Affect, Normal Mood - Skin Skin Exam: Dry, Intact, Normal Color, Warm Assessment and Plan (1) Dyspnea Status: Acute (2) Hyperlipidemia Status: Acute (3) HTN (hypertension) Status: Chronic (4) Acute on chronic combined systolic and diastolic congestive heart failure Status: Acute (5) EKG abnormality Status: Acute (6) Troponin I above reference range Status: Acute - Assessment and Plan (Free Text) Plan: repeat echo reveals dcm and ef of 12%. reviewed records at [facility] [place]. pt had no cad on cath in 2013. st last year no ischemia d/w residents and EP regarding ppm Pt is undecided. I discussed this w him at length. explained risks and benefits. risk of scd. need for ronnie w/u as outpt. decrease lovenox to 40 daily given echo would increase diuretics to 1mg bumex bid x 2 days then decrease to current lasix dosing. monitor bnp and mag 65 min total care.
--- NOTE | 2017-01-06 08:03 | CARD ---
APPROVED REPORT EXAM: Two-dimensional and M-mode echocardiogram with Doppler and color Doppler. Other Information Quality : GoodRhythm : INDICATION Abnormal EKG/Arrhythmia Congestive Heart Failure RISK FACTORS Hypertension Hyperlipidemia M-Mode DIMENSIONS RVDd0.78 (2.1-3.2cm)Left Atrium (MM)4.21 (2.5-4.0cm) IVSd0.91 (0.7-1.1cm)Aortic Root3.47 (2.2-3.7cm) LVDd9.27 (4.0-5.6cm)Aortic Cusp Exc.1.43 (1.5-2.0cm) PWd0.91 (0.7-1.1cm)FS (%) 12 % LVDs8.16 (2.0-3.8cm)LVEF (%)25 (>50%) Mitral Valve MV E Ypornapo78.0cm/sMV A Rgqqwciz64.3cm/sE/A ratio0.8 TDI E/Lateral E'0.0E/Medial E'0.0 Tricuspid Valve TR Peak Jnxibbvv973ol/sTR Peak Gr.[id number] LEFT VENTRICLE The Left Ventricle is severely dilated. There is normal left ventricular wall thickness. Left ventricle systolic function is severely impaired. The Ejection Fraction is 20-25%. There is global hypokinesis of the left ventricle. The left ventricular diastolic function is normal. No left ventricle thrombus noted on this study. RIGHT VENTRICLE The right ventricle is normal size. The right ventricular systolic function is normal. ATRIA The left atrium is mildly dilated. The right atrium size is normal. AORTIC VALVE The aortic valve is trileaflet. No aortic regurgitation is present. There is no aortic valvular stenosis on 2D. There is no aortic valvular vegetation. MITRAL VALVE Mitral annular calcification is moderate. There is no evidence of mitral valve prolapse. There is no mitral valve stenosis. Mitral regurgitation is mild to moderate. TRICUSPID VALVE The tricuspid valve is normal in structure. There is trace to mild tricuspid regurgitation. Right ventricular systolic pressure is estimated at less than 30 mmHg. There is no pulmonary hypertension. There is no tricuspid valve prolapse or vegetation. There is no tricuspid valve stenosis. PULMONIC VALVE The pulmonic valve is not well visualized. There is mild pulmonic valvular regurgitation. GREAT VESSELS The aortic root is normal in size. The IVC is normal in size and collapses >50% with inspiration. PERICARDIAL EFFUSION There is no pericardial effusion. There is no pleural effusion. <Conclusion> The Left Ventricle is severely dilated. Left ventricle systolic function is severely impaired. The Ejection Fraction is 20-25%. There is global hypokinesis of the left ventricle. The left atrium is mildly dilated. The right atrium size is normal. There is no aortic valvular stenosis on 2D. Mitral regurgitation is mild to moderate. There is trace to mild tricuspid regurgitation. There is mild pulmonic valvular regurgitation.
--- NOTE | 2017-01-06 08:21 | CARD ---
APPROVED REPORT EKG Measurement Heart [id number] <Conclusion> Normal sinus rhythm Possible Left atrial enlargement Left ventricular hypertrophy ST & T wave abnormality, consider inferolateral ischemia Prolonged QT Abnormal ECG
[2017-01-06] MEDS ORDERED: Enoxaparin 40 mg Syringe SC SCH (10:00)
[2017-01-06] MEDS: Metoprolol Succinate 50 mg XL Tab PO SCH (10:13)
--- NOTE | 2017-01-06 13:49 | CP.PCM.PN ---
<Nic Nicole - Last Filed: 01/06/17 13:46> Subjective - Date & Time of Evaluation Date of Evaluation: 01/06/17 Time of Evaluation: 12:00 - Subjective Subjective: Cardiology Note- Dr. Lopez' service Patient was seen and examined at bedside. Patient reports no acute complaints overnight. No events overnight per nursing. Current plan is discharge after getting the lifevest and discharge home, for followup with Dr. Lopez later for planning of ICD placement. Objective - Vital Signs/Intake and Output Vital Signs (last 24 hours): Temp Pulse Resp BP Pulse Ox 97.6 F 82 20 113/77 96 01/06/17 07:10 01/06/17 11:59 01/06/17 07:10 01/06/17 13:17 01/06/17 07:10 - Medications Medications: Current Medications Aspirin (Aspirin) 325 mg PO DAILY [facility] Last Admin: 01/06/17 10:13 Dose: 325 mg Enoxaparin Sodium (Lovenox) 40 mg SC DAILY [facility] Last Admin: 01/06/17 10:13 Dose: 40 mg Famotidine (Pepcid) 20 mg PO BID [facility] Last Admin: 01/06/17 10:13 Dose: 20 mg Furosemide (Lasix) 40 mg PO DAILY [facility] Last Admin: 01/06/17 13:17 Dose: 40 mg Losartan Potassium (Cozaar) 50 mg PO DAILY [facility] Last Admin: 01/06/17 10:13 Dose: 50 mg Metoprolol Succinate (Toprol Xl) 50 mg PO Q12 [facility] Last Admin: 01/06/17 10:13 Dose: 50 mg Rosuvastatin Calcium (Crestor) 10 mg PO HS [facility] Last Admin: 01/05/17 21:43 Dose: 10 mg - Labs Labs: PT 11.9 SECONDS (9.7-12.2) 01/05/17 06:46 INR 1.1 01/05/17 06:46 APTT 34 SECONDS (21-34) 01/05/17 06:46 - Constitutional Appears: Non-toxic, No Acute Distress - Head Exam Head Exam: ATRAUMATIC, NORMAL INSPECTION, NORMOCEPHALIC - Eye Exam Pupil Exam: NORMAL ACCOMODATION, PERRL - ENT Exam ENT Exam: Mucous Membranes Moist - Respiratory Exam Respiratory Exam: Clear to Ausculation Bilateral, NORMAL BREATHING PATTERN. absent: Prolonged Expiratory Phase, Rales, Rhonchi, Wheezes - Cardiovascular Exam Cardiovascular Exam: REGULAR RHYTHM, +S1, +S2 - Extremities Exam Extremities Exam: Normal Capillary Refill, Normal Inspection - Neurological Exam Neurological Exam: Alert, Awake, Oriented x3 - Psychiatric Exam Psychiatric exam: Normal Affect, Normal Mood - Skin Skin Exam: Dry, Intact, Normal Color, Warm Assessment and Plan - Assessment and Plan (Free Text) Assessment: Acute on Chronic CHF Non ischemic dilated cardiomyopathy Continue meds: Lasix 40mg IVP Q12 Losartan 50mg PO daily ASA 81mg PO daily Crestor 10mg PO HS Metoprolol Succinate 50mg Q12h Continue full anticoagulation Will attempt to obtain records from [facility] [place] in regards to echos/ caths previously done. First 3 ROMIs negative JERMAIN this AM positive at 0.[address] Staton, cardiac cath records from 2012 indicate that his coronaries were patent and functional, so no cath will be needed at this time. Called Dr. Ferro, he is okay with us proceeding with treating his patient, implant ICD if necessary. Planning for LifeVest today. Will discuss case with Dr. Lopez <Tere Lopez - Last Filed: 01/07/17 09:54> Objective - Vital Signs/Intake and Output Vital Signs (last 24 hours): Temp Pulse Resp BP Pulse Ox 98 F 79 20 100/62 99 01/06/17 15:53 01/06/17 15:53 01/06/17 15:53 01/06/17 15:53 01/06/17 15:53 - Labs Labs: PT 11.9 SECONDS (9.7-12.2) 01/05/17 06:46 INR 1.1 01/05/17 06:46 APTT 34 SECONDS (21-34) 01/05/17 06:46 Attending/Attestation - Attestation I have personally seen and examined this patient.: Yes I have fully participated in the care of the patient.: Yes I have reviewed all pertinent clinical information, including history, physical exam and plan: Yes Notes (Text): 01/07/17 09:53 Pt will get vest today plan for ICD outpt
[2017-01-06 15:54] VITALS: BP 100/62; PULSE 79; TEMP 98; O2SAT 99
--- NOTE | 2017-01-06 16:41 | PCM.HF ---
Heart Failure Core Measure - Heart Failure Ejection Fraction: Less Than 40 % (LVEF 12%) HUMPHREY Inhibitor Prescribed: No Contraindication/Reason for not providing: ARB Beta-Tc Prescribed: Metoprolol Succinate Angiotensin II Receptor Tc Prescribed: Yes AnticoagulationTherapy for Atrial Fibrillation/Atrialflutter: No Contraindication/Reason for not providing: NO AFIB Aldosterone Antagonist Prescribed: No Contraindication/Reason for not providing: RENAL DYSFUNCTION Hydralazine Nitrate Prescribed: No Contraindication/Reason for not providing: NOT RX BY MD Implantable Cardioverter Defibrillator Therapy: No Contraindication/Reason for not providing: POSSIBLE AICD WITH DR PEÑA NEXT WEEK Cardiac Resynchronization Therapy Prescribed: No Contraindication/Reason for not providing: POSSIBLE AICD WITH DR PEÑA NEXT WEEK - Follow up Will be discharged to: Home Follow Up Date (must be within 7 days from discharge): 01/08/17 Follow Up Time: 09:00
--- NOTE | 2017-01-06 19:04 | CP.PCM.DIS ---
<Vinh Salazar - Last Filed: 01/06/17 18:59> Provider - Provider Date of Admission: 01/05/17 14:19 Attending physician: Earnest Shaikh MD Consults: Cardio: Dr. Staton Cardio: Dr. Lopez Time Spent in preparation of Discharge (in minutes): 40 Hospital Course - Lab Results Lab Results: Most Recent Lab Values WBC 5.4 K/uL (4.8-10.8) 01/05/17 06:46 RBC 5.57 Mil/uL (4.40-5.90) 01/05/17 06:46 Hgb 16.1 g/dL (12.0-18.0) 01/05/17 06:46 Hct 50.2 % (35.0-51.0) 01/05/17 06:46 MCV 90.2 fL (80.0-94.0) 01/05/17 06:46 MCH 28.9 pg (27.0-31.0) 01/05/17 06:46 MCHC 32.0 g/dL (33.0-37.0) L 01/05/17 06:46 RDW 13.6 % (11.5-14.5) 01/05/17 06:46 Plt Count 199 K/uL (130-400) 01/05/17 06:46 MPV 9.4 fL (7.2-11.7) 01/05/17 06:46 Neut % (Auto) 37.4 % (50.0-75.0) L 01/05/17 06:46 Lymph % (Auto) 48.1 % (20.0-40.0) H 01/05/17 06:46 [place] % (Auto) 11.4 % (0.0-10.0) H 01/05/17 06:46 Eos % (Auto) 2.8 % (0.0-4.0) 01/05/17 06:46 Baso % (Auto) 0.3 % (0.0-2.0) 01/05/17 06:46 Neut # 2.0 K/uL (1.8-7.0) 01/05/17 06:46 Lymph # 2.6 K/uL (1.0-4.3) 01/05/17 06:46 [place] # 0.6 K/uL (0.0-0.8) 01/05/17 06:46 Eos # 0.2 K/uL (0.0-0.7) 01/05/17 06:46 Baso # 0.0 K/uL (0.0-0.2) 01/05/17 06:46 PT 11.9 SECONDS (9.7-12.2) 01/05/17 06:46 INR 1.1 01/05/17 06:46 APTT 34 SECONDS (21-34) 01/05/17 06:46 D-Dimer, Quantitative < 200 ng/mlDDU (0-243) 01/03/17 12:38 Sodium 142 mmol/L (132-148) 01/05/17 06:46 Potassium 4.3 mmol/L (3.6-5.2) 01/05/17 06:46 Chloride 102 mmol/L (98-107) 01/05/17 06:46 Carbon Dioxide 25 mmol/L (22-30) 01/05/17 06:46 Anion Gap 19 (10-20) 01/05/17 06:46 BUN 21 mg/dL (9-20) H 01/05/17 06:46 Creatinine 1.3 MG/DL (0.8-1.5) 01/05/17 06:46 Est GFR ( Amer) > 60 01/05/17 06:46 Est GFR (Non-Af Amer) 59 01/05/17 06:46 Random Glucose 92 mg/dL (75-110) 01/05/17 06:46 Hemoglobin A1c 5.5 % (4.2-6.5) 01/04/17 06:15 Calcium 9.1 mg/dl (8.6-10.4) 01/05/17 06:46 Phosphorus 4.8 mg/dL (2.5-4.5) H 01/04/17 06:15 Magnesium 2.1 mg/dL (1.6-2.3) 01/05/17 06:46 Total Bilirubin 1.2 mg/dL (0.2-1.3) 01/04/17 06:15 AST 43 U/L (17-59) 01/04/17 06:15 ALT 31 U/L (21-72) 01/04/17 06:15 Alkaline Phosphatase 60 U/L (38-126) 01/04/17 06:15 Total Creatine Kinase 249 U/L (55-170) H 01/06/17 00:35 CK-MB (Mass) 1.69 ng/mL (0.0-3.38) 01/06/17 00:35 Troponin I 0.2850 ng/mL (0.00-0.120) H* 01/05/17 14:05 Troponin I, Quant 0.2090 ng/mL (0.00-0.120) H* 01/06/17 00:35 NT-Pro-B Natriuret Pep 2370 pg/mL (0-450) H 01/03/17 12:38 Total Protein 7.2 g/dL (6.3-8.3) 01/04/17 06:15 Albumin 4.0 g/dL (3.5-5.0) 01/04/17 06:15 Globulin 3.2 gm/dL (2.2-3.9) 01/04/17 06:15 Albumin/Globulin Ratio 1.3 (1.0-2.1) 01/04/17 06:15 Triglycerides 105 mg/dL (0-149) 01/04/17 06:15 Cholesterol 242 mg/dL (0-199) H 01/04/17 06:15 LDL Cholesterol Direct 159 mg/dL (0-129) H 01/04/17 06:15 HDL Cholesterol 52 mg/dL (30-70) 01/04/17 06:15 Free T4 1.34 ng/dL (0.78-2.19) 01/04/17 06:15 TSH 3rd Generation 3.58 mIU/L (0.46-4.68) 01/04/17 06:15 Urine Color Colorless (YELLOW) 01/03/17 12:38 Urine Clarity Clear (Clear) 01/03/17 12:38 Urine pH 5.0 (5.0-8.0) 01/03/17 12:38 Ur Specific [place] 1.004 (1.003-1.030) 01/03/17 12:38 Urine Protein Negative mg/dL (NEGATIVE) 01/03/17 12:38 Urine Glucose (UA) Normal mg/dL (Normal) 01/03/17 12:38 Urine Ketones Negative mg/dL (NEGATIVE) 01/03/17 12:38 Urine Blood Negative (NEGATIVE) 01/03/17 12:38 Urine Nitrate Negative (NEGATIVE) 01/03/17 12:38 Urine Bilirubin Negative (NEGATIVE) 01/03/17 12:38 Urine Urobilinogen Normal mg/dL (0.2-1.0) 01/03/17 12:38 Ur Leukocyte Esterase Neg Mary/uL (Negative) 01/03/17 12:38 - Hospital Course Hospital Course: Upon hospital admission: Patient is a 51year old male PMHx of CHF, HTN, asthma presenting with SOB for 3 days. Patient reported he did not come in earlier as he believed it was improving but it worsened greatly this morning as he was becoming short of breath upon working 10feet to the shower. Patient reported he saw his PMD Dr. Ferro 2 months ago and had not taken his medications for over a week as he didn't feel like doing so and reported they were making him congested. Patient also states that he had been advised regarding AICD placement for over a year but is still thinking about it. Patient reports this morning he started feeling faint as well as short of breath when walking but denied any acute chest pain. Patient was last seen in in 2015 and was in the ICU for 24hours due to "fluid in lungs." Patient reports having to use 3 pillows to sleep otherwise he feels short of breath. Patient denied chest pain, palpitations, abdominal pain, nausea, vomiting, diarrhea, constipation, urinary complaints, pain in his legs. Patient denied any recent travel and denied any sick contacts. Patient admits to nonproductive cough, unintentional weight gain of 5 pounds in 2 months, and orthopnea. As per medical records, patient had a stress test 1 year ago with an EF of 20%. PMD: Dr. Ferro PMHx: CHF, HTN, asthma Meds: please see list ALL: enalapril, levofloxacin PSurg: denies PHospitalization: 2016 for CHF exacerbation- was in ICU for 1 day Family Hx: denies history of PA, CVA, cancer Social Hx: quit tobacco abuse 2011 used to smoke 1ppd for 15 years. Drinks EtOH socially. Denies drug abuse. Lives with ex 's mom. Works as customer service. During hospital course, the patient was evaluated and treated for the following : (1). Acute on chronic combined systolic and diastolic congestive heart failure : Pt stopped home medications for nearly 2 weeks because the diuretic causes him to urinate frequently, and this becomes cumbersome for him ("wanted to see how I would do without the medications"). Echo with Ef 20-25%. No thrombosis see full report. Troponin 3-4 Positive (Downtrending). Troponin's 1-2 Negative. EKG 3 - left ventricular hypertrophy; possible inferolateral ischemia. Cardio consult, Dr. Lopez - Pt previously worn a life vest before for about one year. Dr. Ferro is okay with team treating his patient - implant ICD if necessary. Cardio consult Dr. Staton - pt without complaints of cp or mercer. positive orthopnea. repeat echo reveals dcm and ef of 12%. [place] [facility] [place] had no cad on cath in 2012. stress test last year no ischemia. decrease lovenox to 40 daily. Tx with Lasix 40mg IVP Q12, Losartan 50mg PO daily , Lopressor 25mg PO BID, ASA 81mg PO daily, Crestor 10mg PO HS. CXR 01/03/17: cardiomegaly and mild pulmonary vascular congestion. No evidence of significant pleural effusion. (2). Hypertension tx with Losartan 50mg PO daily, Lopressor 25mg PO BID, ASA 81mg PO daily, Crestor 10mg PO HS. (3). Asthma tx with Duoneb 3ml INH Q6 PRN. Upon hospital discharge, the patient was provided with the following instructions: Patient is stable for discharge per Dr. Shaikh. Patient should resume all medications as outlined in this document. Additionally, patient should take the medications listed below (scripts provided). 1. Please make an appointment and follow up with your Primary Doctor Dr. Ferro , within one week of discharge. 2. Please make an appointment and follow up with your Guide Cruise Dr. Lopez within one week of discharge regarding your appointment for ICD evaluation and placement. Before going home today, you will also be fitted for and provided a Life Vest. 3. Please obtain a referral for a [facility] S[facility] Tender from your PMD - for evaluation of Obstructive Sleep Apnea. Patient should return to ED immediately if symptoms return or worsen. Instructions discussed with patient who understood and agreed. Prescribed medications: ASA 81mg PO daily #30 Plavix 75mg PO daily #30 Lasix 60mg PO daily #30 Losartan 50mg PO daily #30 Metoprolol Succinate XL 50mg PO Q12 #60 Simvastatin 20mg PO HS #30 Aldactone 25mg PO daily #30 This is a summary of the patient's hospital admission, see chart for comprehensive detail. - Date & Time of H&P Date of H&P: 01/03/17 Time of H&P: 14:45 Discharge Exam - Additional Findings Additional findings: - Constitutional Appears: Non-toxic, No Acute Distress - Head Exam Head Exam: ATRAUMATIC, NORMAL INSPECTION, NORMOCEPHALIC - Eye Exam Pupil Exam: NORMAL ACCOMODATION, PERRL - ENT Exam ENT Exam: Mucous Membranes Moist - Respiratory Exam Respiratory Exam: Clear to Ausculation Bilateral, NORMAL BREATHING PATTERN. absent: Prolonged Expiratory Phase, Rales, Rhonchi, Wheezes - Cardiovascular Exam Cardiovascular Exam: REGULAR RHYTHM, +S1, +S2 - Extremities Exam Extremities Exam: Normal Capillary Refill, Normal Inspection - Neurological Exam Neurological Exam: Alert, Awake, Oriented x3 - Psychiatric Exam Psychiatric exam: Normal Affect, Normal Mood - Skin Skin Exam: Dry, Intact, Normal Color, Warm Discharge Plan - Discharge Medications Prescriptions: Aspirin [Aspirin Chewable] 81 mg PO DAILY 30 Days Clopidogrel [Plavix] 75 mg PO DAILY #30 tab Furosemide [Lasix] 60 mg PO DAILY #30 tab Losartan [Cozaar] 50 mg PO DAILY #30 tab Metoprolol Succinate XL [Toprol XL] 50 mg PO Q12H 30 Days Simvastatin 20 mg PO HS #30 tablet Spironolactone [Aldactone] 25 mg PO DAILY 30 Days - Follow Up Plan Condition: STABLE Disposition: HOME/ ROUTINE Instructions: Metoprolol (By mouth), Spironolactone (By mouth), Furosemide (By mouth), Aspirin (By mouth), Simvastatin (By mouth), Losartan (By mouth), Clopidogrel (By mouth), Heart Failure (DC), Heart Healthy Diet (DC) Additional Instructions: Patient is stable for discharge per Dr. Shaikh. Patient should resume all medications as outlined in this document. Additionally, patient should take the medications listed below (scripts provided). 1. Please make an appointment and follow up with your Primary Doctor Dr. Ferro , within one week of discharge. 2. Please make an appointment and follow up with your Guide Cruise Dr. Lopez within one week of discharge regarding your appointment for ICD evaluation and placement. Before going home today, you will also be fitted for and provided a Life Vest. 3. Please obtain a referral for a Turning Sander Tender from your PMD - for evaluation of Obstructive Sleep Apnea. Patient should return to ED immediately if symptoms return or worsen. Instructions discussed with patient who understood and agreed. Prescribed medications: ASA 81mg PO daily #30 Plavix 75mg PO daily #30 Lasix 60mg PO daily #30 Losartan 50mg PO daily #30 Metoprolol Succinate XL 50mg PO Q12 #60 Simvastatin 20mg PO HS #30 Aldactone 25mg PO daily #30 Referrals: Tere Lopez MD [Staff Provider] - Cj Ferro MD [Staff Provider] - Clinical Quality Measures - CQM - Heart Failure Ejection Fraction: Less Than 40 % Left Ventricular Function to be assessed after discharge: Yes HUMPHREY Inhibitor Prescribed: No Contraindication/Reason for not providing: ARB used Beta-Tc Prescribed: Metoprolol Succinate Angiotensin II Receptor Tc Prescribed: Yes AnticoagulationTherapy for Atrial Fibrillation/Atrialflutter: No Contraindication/Reason for not providing: No medically warranted Aldosterone Antagonist Prescribed: No Contraindication/Reason for not providing: No medically warranted Hydralazine Nitrate Prescribed: No Contraindication/Reason for not providing: No medically warranted Implantable Cardioverter Defibrillator Therapy: Yes Contraindication/Reason for not providing: proposed Cardiac Resynchronization Therapy Prescribed: Yes Contraindication/Reason for not providing: proposed Will be discharged to: Home Follow Up Date (must be within 7 days from discharge): 01/12/17 Follow Up Time: 09:00 <Earnest Shaikh - Last Filed: 02/10/17 13:34> Provider - Provider Date of Admission: 01/05/17 14:19 Attending physician: Earnest Shaikh MD Hospital Course - Lab Results Lab Results: Most Recent Lab Values WBC 5.4 K/uL (4.8-10.8) 01/05/17 06:46 RBC 5.57 Mil/uL (4.40-5.90) 01/05/17 06:46 Hgb 16.1 g/dL (12.0-18.0) 01/05/17 06:46 Hct 50.2 % (35.0-51.0) 01/05/17 06:46 MCV 90.2 fL (80.0-94.0) 01/05/17 06:46 MCH 28.9 pg (27.0-31.0) 01/05/17 06:46 MCHC 32.0 g/dL (33.0-37.0) L 01/05/17 06:46 RDW 13.6 % (11.5-14.5) 01/05/17 06:46 Plt Count 199 K/uL (130-400) 01/05/17 06:46 MPV 9.4 fL (7.2-11.7) 01/05/17 06:46 Neut % (Auto) 37.4 % (50.0-75.0) L 01/05/17 06:46 Lymph % (Auto) 48.1 % (20.0-40.0) H 01/05/17 06:46 [place] % (Auto) 11.4 % (0.0-10.0) H 01/05/17 06:46 Eos % (Auto) 2.8 % (0.0-4.0) 01/05/17 06:46 Baso % (Auto) 0.3 % (0.0-2.0) 01/05/17 06:46 Neut # 2.0 K/uL (1.8-7.0) 01/05/17 06:46 Lymph # 2.6 K/uL (1.0-4.3) 01/05/17 06:46 [place] # 0.6 K/uL (0.0-0.8) 01/05/17 06:46 Eos # 0.2 K/uL (0.0-0.7) 01/05/17 06:46 Baso # 0.0 K/uL (0.0-0.2) 01/05/17 06:46 PT 11.9 SECONDS (9.7-12.2) 01/05/17 06:46 INR 1.1 01/05/17 06:46 APTT 34 SECONDS (21-34) 01/05/17 06:46 D-Dimer, Quantitative < 200 ng/mlDDU (0-243) 01/03/17 12:38 Sodium 142 mmol/L (132-148) 01/05/17 06:46 Potassium 4.3 mmol/L (3.6-5.2) 01/05/17 06:46 Chloride 102 mmol/L (98-107) 01/05/17 06:46 Carbon Dioxide 25 mmol/L (22-30) 01/05/17 06:46 Anion Gap 19 (10-20) 01/05/17 06:46 BUN 21 mg/dL (9-20) H 01/05/17 06:46 Creatinine 1.3 MG/DL (0.8-1.5) 01/05/17 06:46 Est GFR ( Amer) > 60 01/05/17 06:46 Est GFR (Non-Af Amer) 59 01/05/17 06:46 Random Glucose 92 mg/dL (75-110) 01/05/17 06:46 Hemoglobin A1c 5.5 % (4.2-6.5) 01/04/17 06:15 Calcium 9.1 mg/dl (8.6-10.4) 01/05/17 06:46 Phosphorus 4.8 mg/dL (2.5-4.5) H 01/04/17 06:15 Magnesium 2.1 mg/dL (1.6-2.3) 01/05/17 06:46 Total Bilirubin 1.2 mg/dL (0.2-1.3) 01/04/17 06:15 AST 43 U/L (17-59) 01/04/17 06:15 ALT 31 U/L (21-72) 01/04/17 06:15 Alkaline Phosphatase 60 U/L (38-126) 01/04/17 06:15 Total Creatine Kinase 249 U/L (55-170) H 01/06/17 00:35 CK-MB (Mass) 1.69 ng/mL (0.0-3.38) 01/06/17 00:35 Troponin I 0.2850 ng/mL (0.00-0.120) H* 01/05/17 14:05 Troponin I, Quant 0.2090 ng/mL (0.00-0.120) H* 01/06/17 00:35 NT-Pro-B Natriuret Pep 2370 pg/mL (0-450) H 01/03/17 12:38 Total Protein 7.2 g/dL (6.3-8.3) 01/04/17 06:15 Albumin 4.0 g/dL (3.5-5.0) 01/04/17 06:15 Globulin 3.2 gm/dL (2.2-3.9) 01/04/17 06:15 Albumin/Globulin Ratio 1.3 (1.0-2.1) 01/04/17 06:15 Triglycerides 105 mg/dL (0-149) 01/04/17 06:15 Cholesterol 242 mg/dL (0-199) H 01/04/17 06:15 LDL Cholesterol Direct 159 mg/dL (0-129) H 01/04/17 06:15 HDL Cholesterol 52 mg/dL (30-70) 01/04/17 06:15 Free T4 1.34 ng/dL (0.78-2.19) 01/04/17 06:15 TSH 3rd Generation 3.58 mIU/L (0.46-4.68) 01/04/17 06:15 Urine Color Colorless (YELLOW) 01/03/17 12:38 Urine Clarity Clear (Clear) 01/03/17 12:38 Urine pH 5.0 (5.0-8.0) 01/03/17 12:38 Ur Specific [place] 1.004 (1.003-1.030) 01/03/17 12:38 Urine Protein Negative mg/dL (NEGATIVE) 01/03/17 12:38 Urine Glucose (UA) Normal mg/dL (Normal) 01/03/17 12:38 Urine Ketones Negative mg/dL (NEGATIVE) 01/03/17 12:38 Urine Blood Negative (NEGATIVE) 01/03/17 12:38 Urine Nitrate Negative (NEGATIVE) 01/03/17 12:38 Urine Bilirubin Negative (NEGATIVE) 01/03/17 12:38 Urine Urobilinogen Normal mg/dL (0.2-1.0) 01/03/17 12:38 Ur Leukocyte Esterase Neg Mary/uL (Negative) 01/03/17 12:38 Attending/Attestation - Attestation I have personally seen and examined this patient.: Yes I have fully participated in the care of the patient.: Yes I have reviewed all pertinent clinical information, including history, physical exam and plan: Yes Notes (Text): Patient seen and examined with the resident. Agree with the resident's evaluation, assessment and plan. Acute on chronic combined systolic and diastolic congestive heart failure
--- NOTE | 2017-01-07 19:07 | CARD ---
APPROVED REPORT EKG Measurement Heart [id number] <Conclusion> Normal sinus rhythm Biatrial enlargement Left ventricular hypertrophy ST & T wave abnormality, consider inferolateral ischemia Abnormal ECG
--- NOTE | 2017-01-08 13:19 | CARD ---
APPROVED REPORT EKG Measurement Heart [id number] [place] [id number] <Conclusion> Sinus tachycardia Possible Left atrial enlargement Left axis deviation Left ventricular hypertrophy T wave abnormality, consider lateral ischemia Abnormal ECG
== END 2017-01-06 20:15 | disposition home or self-care (01) | DRG 293 ==
LOC: C.ER 12:01 → C.9E 14:28 → C.6T 16:13 → OBSVTOIN 01-05 14:19
PROVIDERS: ADMIT Internal Medicine; ATTEND Internal Medicine
DX: I11.0 Hypertensive heart disease with heart failure (principal); I50.43 Acute on chronic combined systolic (congestive) and diastolic (congestive) heart failure; E05.90 Thyrotoxicosis, unspecified without thyrotoxic crisis or storm; R94.31 Abnormal electrocardiogram [ECG] [EKG]; J45.909 Unspecified asthma, uncomplicated; R06.00 Dyspnea, unspecified; E78.5 Hyperlipidemia, unspecified; R79.89 Other specified abnormal findings of blood chemistry; Z91.14 Patient's other noncompliance with medication regimen; Z87.891 Personal history of nicotine dependence; Z87.01 Personal history of pneumonia (recurrent)

== ENCOUNTER 2018-04-27 15:43 | Observation (INO) | payer MEDICAID, SELFPAY ==
[2018-04-27 15:43] VITALS: BMI 29.4
[2018-04-27 16:58] LABS: BASO % 0.4 % (0.0-2.0); EOS # 0.1 K/uL (0.0-0.7); HEMOGLOBIN 15.9 g/dL (12.0-18.0); LYMPH # 1.3 K/uL (1.0-4.3); LYMPH % 31.8 % (20.0-40.0); MEAN CELL VOLUME 90.4 fL (80.0-94.0); MEAN CORPUSCULAR HGB CONC 33.2 g/dL (33.0-37.0); MEAN PLATELET VOLUME 8.2 fL (7.2-11.7); MONO # 0.4 K/uL (0.0-0.8); MONO % 9.6 % (0.0-10.0); NEUT # 2.3 K/uL (1.8-7.0); NEUT % 56.2 % (50.0-75.0); NRBC % 0.3 % (0.0-2.0); RBC 5.29 Mil/uL (4.40-5.90); RED CELL DISTRIBUTION WIDTH 13.8 % (11.5-14.5); WHITE BLOOD COUNT 4.1 K/uL (4.8-10.8)
[2018-04-27 17:22] LABS: ALB/GLOB RATIO 1.4 (1.0-2.1); ALBUMIN 4.7 g/dL (3.5-5.0); ALT/SGPT 37 U/L (21-72); AST/SGOT 50 U/L (17-59); BLOOD UREA NITROGEN 13 mg/dL (9-20); CALCIUM 9.8 mg/dl (8.6-10.4); GFR AFRICAN-AMERICAN > 60; GFR NON-AFRICAN AMERICAN > 60
[2018-04-27 17:27] LABS: INR 1.1
[2018-04-27 17:31] LABS: B-TYPE NATRIURETIC PEPTIDE 2390 pg/mL (0-900)
--- NOTE | 2018-04-27 17:39 | RAD ---
Date of service: 04/27/2018 PROCEDURE: CHEST RADIOGRAPH, 1 VIEW HISTORY: SOB COMPARISON: Chest radiograph dated 08/08/2017. FINDINGS: LUNGS: Clear. PLEURA: No pneumothorax or pleural fluid seen. CARDIOVASCULAR: And left subclavian access AICD/ pacemaker redemonstrated. Cardiomediastinal silhouette stably enlarged. OSSEOUS STRUCTURES: Unchanged. VISUALIZED UPPER ABDOMEN: Normal. OTHER FINDINGS: None. IMPRESSION: No active disease.
--- NOTE | 2018-04-27 18:25 | C.PDOC ---
History Of Present Illness 52-year-old male, PMHx includes CHF, presents to the emergency department with complaints of shortness of breath and chest pain. Patient denies any nausea/ vomiting. Time Seen by Provider: 04/27/18 16:23 Chief Complaint (Nursing): Chest Pain History Per: Patient History/Exam Limitations: no limitations Onset/Duration Of Symptoms: Days Current Symptoms Are (Timing): Still Present Severity: Moderate Past Medical History Reviewed: Historical Data, Nursing Documentation, Vital Signs Vital Signs: Last Vital Signs Temp 98.2 F 04/27/18 17:43 Pulse 60 04/27/18 17:43 Resp 18 04/27/18 17:43 BP 127/85 04/27/18 17:43 Pulse Ox 97 04/27/18 18:28 - Medical History PMH: CHF, HTN, Hypercholesterolemia, Hyperthyroidism, Pneumonia Denies: Chronic Kidney Disease Surgical History: Pacemaker Family History: States: No Known Family Hx - Social History Hx Alcohol Use: Yes Hx Substance Use: No - Immunization History Hx Tetanus Toxoid Vaccination: (unk) Hx Influenza Vaccination: (unk) Hx Pneumococcal Vaccination: Yes Review Of Systems Constitutional: Negative for: Fever, Chills Cardiovascular: Positive for: Chest Pain. Negative for: Palpitations Respiratory: Positive for: Shortness of Breath Gastrointestinal: Negative for: Nausea, Vomiting Musculoskeletal: Negative for: Back Pain Neurological: Negative for: Weakness Physical Exam - Physical Exam Appears: Non-toxic, No Acute Distress Skin: Normal Color, Warm, Dry, No Rash Head: Atraumatic, Normacephalic Eye(s): bilateral: Normal Inspection, PERRL, EOMI Nose: Normal Oral Mucosa: Moist Lips: Normal Appearing Neck: Normal ROM Chest: Symmetrical Cardiovascular: Rhythm Regular, No Murmur Respiratory: Decreased Breath Sounds (B/L), No Accessory Muscle Use Gastrointestinal/Abdominal: Soft, No Tenderness, No Guarding, No Rebound Back: Normal Inspection Extremity: Normal ROM, No Deformity, No Swelling Neurological/Psych: Oriented x3, Normal Speech ED Course And Treatment - Laboratory Results Result Diagrams: 04/27/18 16:53 04/27/18 16:53 ECG: Interpreted By Me, Viewed By Me ECG Rhythm: Sinus Rhythm Interpretation Of ECG: T wave inversion: 1, AVL, V4, V5 and V6. Rate From EC O2 Sat by Pulse Oximetry: 97 Pulse Ox Interpretation: Normal (RA) Medical Decision Making Medical Decision Making: chf - discussed with Dr. Ferro and would like to admit to tele observation Dr. Jac Garcia notified for admission Disposition Discussed With : Talya Garcia Doctor Will See Patient In The: Hospital Counseled Patient/Family Regarding: Studies Performed, Diagnosis - Disposition Disposition: HOSPITALIZED Disposition Time: 18:53 Condition: FAIR Forms: [facility] (Romanian) - Clinical Impression Clinical Impression: CHF (congestive heart failure) - Scribe Statement The provider has reviewed the documentation as recorded by the Scribe (Azar Taylor) All medical record entries made by the Scribe were at my direction and personally dictated by me. I have reviewed the chart and agree that the record accurately reflects my personal performance of the history, physical exam, medical decision making, and the department course for this patient. I have also personally directed, reviewed, and agree with the discharge instructions and disposition.
[2018-04-27] MEDS ORDERED: Albuterol HFA 90 mcg/actuation (8 g) IH PRN (22:37)
[2018-04-28 01:29] LABS: CK-MB 0.81 ng/mL (0.0-3.38); TROPONIN I 0.04 ng/mL (0.00-0.120)
[2018-04-28 09:57] LABS: CK-MB 0.86 ng/mL (0.0-3.38); TROPONIN I 0.043 ng/mL (0.00-0.120)
[2018-04-28] MEDS: Metoprolol Succinate 25 mg XL Tab PO SCH ×2 (10:18→17:01)
[2018-04-28] MEDS: Enoxaparin 40 mg Syringe SC SCH (10:20)
--- NOTE | 2018-04-28 10:43 | CP.PCM.HP ---
History of Present Illness - History of Present Illness History of Present Illness: pt wakeduring the night with chest pain presser across his chest 2 days in [place] came to er Present on Admission - Present on Admission Any Indicators Present on Admission: No Past Patient History - Infectious Disease Hx of Infectious Diseases: None - Past Medical History & Family History Past Medical History?: Yes - Past Social History Smoking Status: Former Smoker - CARDIAC Hx Congestive Heart Failure: Yes Hx Hypercholesterolemia: Yes Hx Hypertension: Yes Hx Pacemaker: Yes - PULMONARY Hx Pneumonia: Yes - HEENT Other/Comment: wears reading glasses - RENAL Hx Chronic Kidney Disease: No - ENDOCRINE/METABOLIC Hx Hyperthyroidism: Yes - MUSCULOSKELETAL/RHEUMATOLOGICAL Hx Falls: No - PSYCHIATRIC Hx Substance Use: No - SURGICAL HISTORY Hx Surgeries: Yes Other/Comment: Lt Kiara chest 03/2017 - ANESTHESIA Hx Anesthesia: Yes Hx Anesthesia Reactions: No Meds Allergies/Adverse Reactions: Allergies Allergy/AdvReac Type Severity Reaction Status Date / Time enalapril maleate Allergy Intermediate SHORTNESS Verified 04/27/18 15:57 [From Vasotec] OF BREATH enalaprilat dihydrate Allergy Intermediate SWELLING Verified 04/27/18 15:57 [From Vasotec] levofloxacin Allergy Unknown SHORTNESS Verified 04/27/18 15:57 OF BREATH iodine Allergy Verified 04/27/18 15:57 Physical Exam - Constitutional Appears: Non-toxic - Head Exam Head Exam: ATRAUMATIC - Eye Exam Eye Exam: Normal appearance Pupil Exam: NORMAL ACCOMODATION - ENT Exam ENT Exam: Mucous Membranes Moist - Neck Exam Neck exam: Positive for: Full Rom - Respiratory Exam Respiratory Exam: Decreased Breath Sounds - Cardiovascular Exam Cardiovascular Exam: REGULAR RHYTHM Additional comments: * K K - GI/Abdominal Exam GI & Abdominal Exam: Normal Bowel Sounds - Rectal Exam Rectal Exam: Deferred - Extremities Exam Extremities exam: Positive for: normal inspection - Back Exam Back exam: NORMAL INSPECTION - Neurological Exam Neurological exam: Alert, Normal Gait, Oriented x3 - Psychiatric Exam Psychiatric exam: Normal Affect - Skin Skin Exam: Normal Color Results - Vital Signs Recent Vital Signs: Last Vital Signs Temp 97 F L 04/28/18 07:00 Pulse 72 04/28/18 07:00 Resp 20 04/28/18 07:00 BP 119/82 04/28/18 10:18 Pulse Ox 98 04/28/18 07:00 - Labs Result Diagrams: 04/27/18 16:53 04/27/18 16:53 Labs: Laboratory Results - last 24 hr 04/27/18 04/27/18 04/27/18 16:53 16:53 16:53 WBC 4.1 L RBC 5.29 Hgb 15.9 Hct 47.9 MCV 90.4 MCH 30.0 MCHC 33.2 RDW 13.8 Plt Count 228 MPV 8.2 Neut % (Auto) 56.2 Lymph % (Auto) 31.8 [place] % (Auto) 9.6 Eos % (Auto) 2.0 Baso % (Auto) 0.4 Neut # (Auto) 2.3 Lymph # (Auto) 1.3 [place] # (Auto) 0.4 Eos # (Auto) 0.1 Baso # (Auto) 0.0 PT 12.0 INR 1.1 APTT 34 Sodium 141 Potassium 5.0 Chloride 102 Carbon Dioxide 28 Anion Gap 16 BUN 13 Creatinine 1.1 Est GFR ( Amer) > 60 Est GFR (Non-Af Amer) > 60 Random Glucose 98 Calcium 9.8 Total Bilirubin 1.1 AST 50 ALT 37 Alkaline Phosphatase 78 Total Creatine Kinase CK-MB (Mass) Troponin I 0.0450 NT-Pro-B Natriuret Pep 2390 H Total Protein 8.0 Albumin 4.7 Globulin 3.4 Albumin/Globulin Ratio 1.4 04/28/18 04/28/18 01:02 09:29 WBC RBC Hgb Hct MCV MCH MCHC RDW Plt Count MPV Neut % (Auto) Lymph % (Auto) [place] % (Auto) Eos % (Auto) Baso % (Auto) Neut # (Auto) Lymph # (Auto) [place] # (Auto) Eos # (Auto) Baso # (Auto) PT INR APTT Sodium Potassium Chloride Carbon Dioxide Anion Gap BUN Creatinine Est GFR ( Amer) Est GFR (Non-Af Amer) Random Glucose Calcium Total Bilirubin AST ALT Alkaline Phosphatase Total Creatine Kinase 370 H 335 H CK-MB (Mass) 0.81 0.86 Troponin I 0.0400 0.0430 NT-Pro-B Natriuret Pep Total Protein Albumin Globulin Albumin/Globulin Ratio Assessment & Plan - Assessment and Plan (Free Text) Assessment: acute chf htn Plan: dr hector consult cotinu as per orders - Date & Time Date: 04/28/18 Time: 10:45
--- NOTE | 2018-04-28 11:46 | CARD ---
APPROVED REPORT Date of service: 04/27/2018 EKG Measurement Heart [id number] <Conclusion> Normal sinus rhythm Possible Left atrial enlargement Left ventricular hypertrophy with repolarization abnormality Abnormal ECG
--- NOTE | 2018-04-28 12:39 | CP.PCM.CON ---
History of Present Illness - History of Present Illness History of Present Illness: 52 years old with dilated cardiomyopathy, nonischemic, on medical treatment that included HUMPHREY inhibitor and beta argelia in addition to an implanted defibrillator. Was doing well yet lost his job noncompliant with fluid restriction and salt restriction was admitted yet again with shortness of breath. Needs diuresis, continue medical treatment, more education about daily weight and fluid restriction Review of Systems - Constitutional Constitutional: Anorexia, Weakness - EENT Eyes: absent: Discharge Ears: absent: Ear Discharge, Dizziness Nose/Mouth/Throat: absent: Epistaxis - Cardiovascular Cardiovascular: Dyspnea, Leg Edema, Orthopnea. absent: Acrocyanosis, Chest Pain , Diaphoresis, Syncope - Respiratory Respiratory: Cough, Dyspnea. absent: Hemoptysis, Stridor - Gastrointestinal Gastrointestinal: absent: Abdominal Pain, Constipation, Cramping, Diarrhea, Vomiting - Genitourinary Genitourinary: absent: Change in Urinary Stream Past Patient History - Infectious Disease Hx of Infectious Diseases: None - Past Medical History & Family History Past Medical History?: Yes - Past Social History Smoking Status: Former Smoker - CARDIAC Hx Congestive Heart Failure: Yes Hx Hypercholesterolemia: Yes Hx Hypertension: Yes Hx Pacemaker: Yes - PULMONARY Hx Pneumonia: Yes - HEENT Other/Comment: wears reading glasses - RENAL Hx Chronic Kidney Disease: No - ENDOCRINE/METABOLIC Hx Hyperthyroidism: Yes - MUSCULOSKELETAL/RHEUMATOLOGICAL Hx Falls: No - PSYCHIATRIC Hx Substance Use: No - SURGICAL HISTORY Hx Surgeries: Yes Other/Comment: DeffibrLt brayden chest 03/2017 - ANESTHESIA Hx Anesthesia: Yes Hx Anesthesia Reactions: No Meds Allergies/Adverse Reactions: Allergies Allergy/AdvReac Type Severity Reaction Status Date / Time enalapril maleate Allergy Intermediate SHORTNESS Verified 04/27/18 15:57 [From Vasotec] OF BREATH enalaprilat dihydrate Allergy Intermediate SWELLING Verified 04/27/18 15:57 [From Vasotec] levofloxacin Allergy Unknown SHORTNESS Verified 04/27/18 15:57 OF BREATH iodine Allergy Verified 04/27/18 15:57 - Medications Medications: Current Medications Albuterol (Ventolin Hfa 90 Mcg/Actuation (8 G)) 2 puff IH RQ6 PRN PRN Reason: wheezing/shortness of breath Aspirin (Aspirin Chewable) 81 mg PO DAILY [facility] Last Admin: 04/28/18 10:18 Dose: 81 mg Enoxaparin Sodium (Lovenox) 40 mg SC DAILY [facility] Last Admin: 04/28/18 10:20 Dose: 40 mg Furosemide (Lasix) 40 mg PO DAILY [facility] Last Admin: 04/28/18 10:18 Dose: 40 mg Losartan Potassium (Cozaar) 50 mg PO DAILY [facility] Last Admin: 04/28/18 10:18 Dose: 50 mg Metoprolol Succinate (Toprol Xl) 25 mg PO BID [facility] Last Admin: 04/28/18 10:18 Dose: 25 mg Rosuvastatin Calcium (Crestor) 10 mg PO [facility] Physical Exam - Constitutional Appears: Non-toxic - Head Exam Head Exam: ATRAUMATIC - Eye Exam Eye Exam: EOMI - ENT Exam ENT Exam: Mucous Membranes Moist - Neck Exam Neck exam: Negative for: Lymphadenopathy, Thyromegaly - Respiratory Exam Respiratory Exam: Clear to Auscultation Bilateral. absent: Rales, Wheezes - Cardiovascular Exam Cardiovascular Exam: REGULAR RHYTHM, Systolic Murmur - GI/Abdominal Exam GI & Abdominal Exam: Normal Bowel Sounds. absent: Organomegaly - Rectal Exam Rectal Exam: Deferred - Extremities Exam Extremities exam: Positive for: pedal pulses present. Negative for: calf tenderness - Neurological Exam Neurological exam: Alert, Oriented x3 - Psychiatric Exam Psychiatric exam: Normal Mood Results - Vital Signs Recent Vital Signs: Last Vital Signs Temp 97 F L 04/28/18 07:00 Pulse 72 04/28/18 07:00 Resp 20 04/28/18 07:00 BP 119/82 04/28/18 10:18 Pulse Ox 98 04/28/18 07:00 - Labs Result Diagrams: 04/27/18 16:53 04/27/18 16:53 Labs: Laboratory Results - last 24 hr 04/27/18 04/27/18 04/27/18 16:53 16:53 16:53 WBC 4.1 L RBC 5.29 Hgb 15.9 Hct 47.9 MCV 90.4 MCH 30.0 MCHC 33.2 RDW 13.8 Plt Count 228 MPV 8.2 Neut % (Auto) 56.2 Lymph % (Auto) 31.8 [place] % (Auto) 9.6 Eos % (Auto) 2.0 Baso % (Auto) 0.4 Neut # (Auto) 2.3 Lymph # (Auto) 1.3 [place] # (Auto) 0.4 Eos # (Auto) 0.1 Baso # (Auto) 0.0 PT 12.0 INR 1.1 APTT 34 Sodium 141 Potassium 5.0 Chloride 102 Carbon Dioxide 28 Anion Gap 16 BUN 13 Creatinine 1.1 Est GFR ( Amer) > 60 Est GFR (Non-Af Amer) > 60 Random Glucose 98 Calcium 9.8 Total Bilirubin 1.1 AST 50 ALT 37 Alkaline Phosphatase 78 Total Creatine Kinase CK-MB (Mass) Troponin I 0.0450 NT-Pro-B Natriuret Pep 2390 H Total Protein 8.0 Albumin 4.7 Globulin 3.4 Albumin/Globulin Ratio 1.4 04/28/18 04/28/18 01:02 09:29 WBC RBC Hgb Hct MCV MCH MCHC RDW Plt Count MPV Neut % (Auto) Lymph % (Auto) [place] % (Auto) Eos % (Auto) Baso % (Auto) Neut # (Auto) Lymph # (Auto) [place] # (Auto) Eos # (Auto) Baso # (Auto) PT INR APTT Sodium Potassium Chloride Carbon Dioxide Anion Gap BUN Creatinine Est GFR ( Amer) Est GFR (Non-Af Amer) Random Glucose Calcium Total Bilirubin AST ALT Alkaline Phosphatase Total Creatine Kinase 370 H 335 H CK-MB (Mass) 0.81 0.86 Troponin I 0.0400 0.0430 NT-Pro-B Natriuret Pep Total Protein Albumin Globulin Albumin/Globulin Ratio Assessment & Plan (1) Acute on chronic combined systolic and diastolic congestive heart failure Status: Acute Comment: Acute exacerbation with noncompliance with diet. Nonischemic etiology with prior negative stress test and echo. Continue medical treatment
[2018-04-29 00:43] VITALS: RESP 20
[2018-04-29 08:36] VITALS: PULSE 56; TEMP 98.1
[2018-04-29 08:38] VITALS: O2SAT 98
[2018-04-29] MEDS: Metoprolol Succinate 25 mg XL Tab PO SCH (10:24)
[2018-04-29 10:25] VITALS: BP 127/56
[2018-04-29] MEDS: Enoxaparin 40 mg Syringe SC SCH (10:25)
--- NOTE | 2018-04-29 12:55 | IP.NPCORE ---
Heart Failure Core Measure - Heart Failure Ejection Fraction: Less Than 40 % HUMPHREY Inhibitor Prescribed: No Contraindication/Reason for not providing: on ARB Beta-Tc Prescribed: Metoprolol Succinate Angiotensin II Receptor Tc Prescribed: Yes AnticoagulationTherapy for Atrial Fibrillation/Atrialflutter: No Contraindication/Reason for not providing: no hx of a fib Aldosterone Antagonist Prescribed: No Contraindication/Reason for not providing: risk for hyperkalemia Hydralazine Nitrate Prescribed: No Contraindication/Reason for not providing: bp low Implantable Cardioverter Defibrillator Therapy: Yes Contraindication/Reason for not providing: AICD Cardiac Resynchronization Therapy Prescribed: No Contraindication/Reason for not providing: aicd - Follow up Will be discharged to: Home Follow Up Date (must be within 7 days from discharge): 05/04/18 Follow Up Time: 09:00
--- NOTE | 2018-04-29 13:56 | CP.PCM.PN ---
Subjective - Date & Time of Evaluation Date of Evaluation: 04/29/18 Time of Evaluation: 11:20 - Subjective Subjective: Patient seen today, no reported chest pain overnight , denies any sob, palpitations , dizziness, , oob ambulating the moreno way without sob No overnight events reported on monitor troponin x 3 - negative Objective - Vital Signs/Intake and Output Vital Signs (last 24 hours): Temp Pulse Resp BP Pulse Ox 98.1 F 56 L 20 127/56 L 98 04/29/18 07:40 04/29/18 07:40 04/29/18 07:40 04/29/18 10:25 04/29/18 08:27 Intake and Output: 04/29/18 04/29/18 06:59 18:59 Intake Total 200 Balance 200 - Labs Labs: 04/27/18 16:53 04/27/18 16:53 PT 12.0 SECONDS (9.7-12.2) 04/27/18 16:53 INR 1.1 04/27/18 16:53 APTT 34 SECONDS (21-34) 04/27/18 16:53 Assessment and Plan - Assessment and Plan (Free Text) Assessment: A/P 52 yr old lee ann schmitt pmhx of CHF, HTN, Hypercholesterolemia, admitted with chest pain and sob troponin x 3 - negative cxr- negative Dr. Ferro cardiology consulted and seen patient - Nonischemic etiology with prior negative stress test and echo and recommends to Continue medical treatment D/w Dr. Garcia, cleared for discharge home today and f/u with Dr. Ferro office next week Discharge plan discussed with patient who understands and agree with plan Patient instructed to returns to ED if symptoms return or any other concerning symptoms patient counselled regarding diet- low sodium and fluid restriction. as per patient no need for RX he has all medication at home
== END 2018-04-29 13:23 | disposition home or self-care (01) ==
LOC: C.ER 15:43 → C.9E 18:52 → C.6T 20:19
PROVIDERS: ADMIT Internal Medicine; ATTEND Internal Medicine
DX: I11.0 Hypertensive heart disease with heart failure (principal); I42.0 Dilated cardiomyopathy; I50.9 Heart failure, unspecified; Z91.19 Patient's noncompliance with other medical treatment and regimen; Z87.891 Personal history of nicotine dependence; E78.00 Pure hypercholesterolemia, unspecified; Z95.0 Presence of cardiac pacemaker
CPT/HCPCS: 36415; 71045; 80053; 83880; 84484; 85025; 85610; 85730; 93005; 96374; 99285; G0378; J1650; J1940